=== PATIENT | male | born 1970 | race Caucasian/White ===

== ENCOUNTER → 2017-04-08 | Outpatient (CLI) | payer OTHER ==
[~2017-04-08] MED LIST: APRE30TA2 PO; FENT1PAT76 TD; LISI-170 PO; METO5VIA30 IVPush; MORP4VIA IVPush; OMNIPAQUE 350 MG/ML, 100ML BOTTLE ONE; ONDA4VIA4 IVPush; PANT40VI IVPush; PROM25AM6 IM; SULF1TAB24 PO; [UNRECOGNIZED DRUG - OTHER] JT
== END | disposition home or self-care (01) ==
LOC: CFH 14:40
PROVIDERS: ATTEND Internal Medicine Gastroenterology
DX: Z01.818 Encounter for other preprocedural examination (principal); K85.92 Acute pancreatitis with infected necrosis, unspecified; R16.1 Splenomegaly, not elsewhere classified
CPT/HCPCS: 74170; Q9967

== ENCOUNTER → 2017-04-14 | Day surgery (SDC) | payer OTHER ==
[~2017-04-14] VITALS: Ht 162.6 cm; Wt 64.5 kg
[~2017-04-14] MED LIST changes: +INSU100V5 SQ-INSULIN; +LACTATED RINGERS 1,000 ML IV SCH; +LIDOCAINE 1%, 2ML SQ PRN; +METF500T4 PO; -OMNIPAQUE 350 MG/ML, 100ML BOTTLE ONE
[2017-04-14 07:16] VITALS: BP 115/75
== END ==
LOC: OUT 06:48
PROVIDERS: ATTEND Internal Medicine Gastroenterology
DX: Z02.9 Encounter for administrative examinations, unspecified (principal)

== ENCOUNTER → 2017-06-27 | Outpatient (CLI) | payer OTHER ==
[~2017-06-27] MED LIST changes: -LACTATED RINGERS 1,000 ML IV SCH; -LIDOCAINE 1%, 2ML SQ PRN; +OMNIPAQUE 350 MG/ML, 100ML BOTTLE ONE
== END | disposition home or self-care (01) ==
LOC: CFH 07:22
PROVIDERS: ATTEND Internal Medicine Gastroenterology
DX: K86.3 Pseudocyst of pancreas (principal); R16.1 Splenomegaly, not elsewhere classified; K83.8 Other specified diseases of biliary tract; K82.4 Cholesterolosis of gallbladder; K85.90 Acute pancreatitis without necrosis or infection, unspecified
CPT/HCPCS: 74177; Q9967

== ENCOUNTER 2018-12-22 15:21 | Inpatient (IN) | payer OTHER ==
[~2018-12-22] VITALS: Ht 162.6 cm; Wt 66.1 kg
[~2018-12-22 15:21] MED LIST changes: +AMOX1TAB64 PO; +INSU100I32 SQ; +LIPA1CAP4 PO; +METF500T17 PO; -METF500T4 PO; +METR-90 PO; -OMNIPAQUE 350 MG/ML, 100ML BOTTLE ONE; -ONDA4VIA4 IVPush; +ONDA4VIA8 IVPush
[2018-12-22] MEDS ORDERED: LORazepam 2 MG/ML, 1ML ONE ×3 (15:31→18:04)
--- NOTE | 2018-12-22 15:40 | NUR ---
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 Pt was yelling from room at 3pm. Pt was found altered. FS 47. He was given 200 D10 IV. FS increased to 174. When in route pt had a tonic clonic seizure with assisted ventilations GCS 3. Then pt stopped seizing GCS 14. FS 170l. BP 140s/80, HR 130, 12 lead unremarkable. 97% RA. A&O x3. Pt is now alert, non verbal, follows some commands. Pt given 1mg Ativan IV per MD. Pt is connected to the monitor. Call light within reach. Family at bedside. Seizure pad on bed, side rails up.
--- NOTE | 2018-12-22 15:47 | NUR ---
x ray at bedside.
[2018-12-22] MEDS ORDERED: SODIUM CHLORIDE FLUSH 10ML SYR IVF ONE (16:00)
[2018-12-22] MEDS ORDERED: LORazepam 2 MG/ML, 1ML IVPush ONE ×3 (16:00→18:00)
[2018-12-22 16:02] LABS: ALANINE AMINOTRANSFERASE 442 U/L (12-78); ALBUMIN 3.6 g/dL (3.4-5.0); ANION GAP 19 mmol/L (5-15); CALCIUM 8.6 mg/dL (8.5-10.1); CHLORIDE 104 mmol/L (98-107); CREATININE 1.08 mg/dL (0.7-1.3)
--- NOTE | 2018-12-22 16:04 | NUR ---
PT TAKEN TO CT.
[2018-12-22 16:05] LABS: ALKALINE PHOSPHATASE 815 U/L (45-117); BILIRUBIN,TOTAL 2.4 mg/dL (0.2-1.0); MEAN CORPUSCULAR HEMOGLOBIN 28.3 pg (27.5-34.5); MEAN CORPUSCULAR HGB CONC 33.6 g/dL (33.2-36.2); MEAN CORPUSCULAR VOLUME 84.3 fL (81-97); PLATELET COUNT 93 x10^3/uL (130-400); RED BLOOD COUNT 4.94 x10^6/uL (4.38-5.82); RED CELL DISTRIBUTION WIDTH 17.6 % (9.4-14.8)
[2018-12-22 16:07] LABS: BASOPHILS # (AUTO) 0.03 x10^3/uL (0-0.1); BASOPHILS % (AUTO) 0 % (0-1); EOSINOPHILS # (AUTO) 0.07 x10^3/uL (0-0.4); EOSINOPHILS % (AUTO) 1 % (1-7); LYMPHOCYTES # (AUTO) 0.47 x10^3/uL (1-3.4); LYMPHOCYTES % (AUTO) 7 % (22-44); MD SCAN; MONOCYTES # (AUTO) 0.16 x10^3/uL (0.2-0.8); MONOCYTES % (AUTO) 3 % (2-9); NEUTROPHILS # (AUTO) 5.77 x10^3/uL (1.8-6.8); NEUTROPHILS % (AUTO) 89 % (42-75)
[2018-12-22 16:13] LABS: ACETAMINOPHEN < 2 mcg/mL (10-30); SALICYLATE LEVEL < 1.7 mg/dL (2.8-20.0)
--- NOTE | 2018-12-22 16:22 | NUR ---
Pt is back from CT. Pt is A&O X 4. Family at bedside. Pt is connected to the monitor. Call light within reach. Seizure pads in place, side rails up. Per MD give 2L NS IV. NS is running.
[2018-12-22] MEDS ORDERED: SODIUM CHLORIDE 0.9% 1,000ML IVBOLUS ONE (16:30)
--- NOTE | 2018-12-22 16:40 | NUR ---
lab at bedside.
--- NOTE | 2018-12-22 16:53 | NUR ---
Pt taken to CT for ABD and pelvis.
[2018-12-22] MEDS ORDERED: LACTULOSE 20 GM/30 ML UDC PO ONE ×2 (17:00→21:30)
[2018-12-22] MEDS ORDERED: LACTULOSE 3.3 GM/5 ML ORAL.SOL RC ONE ×2 (17:00→19:30)
--- NOTE | 2018-12-22 17:39 | NUR ---
FAMILY CALLED PT FOUND TO BE HAVING SEIZURE LIKE ACTIVITY. MD AND NURSE AT BEDSIDE. ASSISTED VENTILATIONS FOR PT. PT MOVED TO TRAUMA 4.
--- NOTE | 2018-12-22 17:42 | NUR ---
VERBAL ORDER BY : [id number] 1MG ATIVAN IV GIVEN BY NURSING DIETARY SUPERVISOR.
--- NOTE | 2018-12-22 17:49 | NUR ---
Pt moved to T4 for closer observation r/t continued seizure activity. Pt currently awake, no verbal response, withdraws from pain. POC discussed with pt's family members who are at bedside. Pt incontinent of urine, linens changed and pt cleaned up. Seizure precautions remain in place, all monitors in place, all safety measures observed.
--- NOTE | 2018-12-22 17:58 | NUR ---
Pt with seizure activity again. Episode lasting approx [address] Lr made aware. Orders received for 1mg Ativan IVP. Pt medicated per order, pt safety maintained. This RN noted pt to be wearing Invisalign dental trays on upper and lower teeth. Dental trays removed and given to pt's family member.
[2018-12-22] MEDS ORDERED: ACYCLOVIR 650 MG in SODIUM CHLORIDE 0.9% 100 ML IV ONE (18:00)
[2018-12-22] MEDS ORDERED: CEFTRIAXONE PMX 2GM/50ML 50 ML IV SCH (18:00)
[2018-12-22] MEDS ORDERED: LEVETIRACETAM 2,000 MG in SODIUM CHLORIDE 0.9% 100 ML IV ONE (18:00)
[2018-12-22] MEDS ORDERED: CEFTRIAXONE PMX 2GM/50ML 50 ML ONE (18:04)
--- NOTE | 2018-12-22 18:33 | NUR ---
LP performed by Dr. Lr and MD resident. Pt tolerated well, safety maintained. Pt lying flat in bed, awake, withdraws from pain. All safety measures observed.
[2018-12-22 18:56] LABS: GLUCOSE, CSF 85 mg/dL (40-80); TOTAL PROTEIN,CSF 39 mg/dL (15-45)
--- NOTE | 2018-12-22 18:56 | NUR ---
Pt straight cathed per order. 650mL clear, dark yellow urine obtained. Pt tolerated well. No change in neuro condition.
--- NOTE | 2018-12-22 19:07 | NUR ---
Pt awake, looks at this RN when his name is called. Pt shakes his head no when asked if he has pain. Pt unable to respond to any other A&O questions.
[2018-12-22 19:16] LABS: MICROSCOPIC NOT IND
[2018-12-22 19:22] LABS: CULTURE INDICATED? NO
[2018-12-22] MEDS ORDERED: [UNRECOGNIZED DRUG - OTHER] PO (19:23)
[2018-12-22 19:29] LABS: AMPHETAMINE SCREEN, URINE Negative (Negative); BARBITURATE SCREEN, URINE Negative (Negative); BENZODIAZEPINE SCREEN, URINE Negative (Negative); CANNABINOID SCREEN, URINE Negative (Negative); COCAINE SCREEN, URINE Negative (Negative); METHADONE SCREEN, URINE Negative (Negative); OPIATE SCREEN, URINE Negative (Negative)
--- NOTE | 2018-12-22 19:53 | NUR ---
Pt responsive to RN, states he is not in pain and knows he is in the hospital. Pt extremely lethargic, drowsy, family at bedside, denies needs at this time.
--- NOTE | 2018-12-22 20:03 | NUR ---
Hospital bed ordered for pt
--- NOTE | 2018-12-22 20:27 | NUR ---
Rectal tube placed for lactulose administration. Hopsitalsist at bedside, verbally changed lactulose order from rectal to NG. ok to use dobbhoff NG tube for pt comfort for lactulose admnistration
--- NOTE | 2018-12-22 20:28 | NUR ---
Dobhoff NG tube ordered, [facility] called states they will send it up.
[2018-12-22] MEDS ORDERED: POTASSIUM CHLORIDE 20 MEQ in SODIUM CHLORIDE 0.9% 250 ML IV ONE (20:30)
[2018-12-22] MEDS ORDERED: CEFTRIAXONE PMX 2GM/50ML 50 ML IV ONE (20:30)
--- NOTE | 2018-12-22 20:36 | NUR ---
Lactulose ordere from pharmacy, pharmacy called to advise yellow slip was en route
--- NOTE | 2018-12-22 20:58 | NUR ---
Admitting MDs at bedside, will insert NG tube after eval and family update
--- NOTE | 2018-12-22 21:24 | NUR ---
NG tube placed, rpt x ray completed, placement confirmed at bedside with MD nassar.
[2018-12-22] MEDS ORDERED: DEXTROSE 50%, 50ML SYRINGE IVPush PRN (21:30)
[2018-12-22] MEDS ORDERED: DEXTROSE 4 GM TAB.CHEW PO PRN (21:30)
[2018-12-22] MEDS ORDERED: ONDANSETRON 2MG/ML, 2ML IVPush PRN (21:30)
[2018-12-22] MEDS ORDERED: GLUCAGON 1 MG IM PRN (21:30)
[2018-12-22] MEDS ORDERED: ONDANSETRON ODT 4 MG PO PRN (21:30)
[2018-12-22] MEDS ORDERED: LABETALOL 5MG/ML, 20ML IVPush PRN (21:30)
[2018-12-22] MEDS ORDERED: hydrALAzine 20 MG/ML, 1ML IVPush PRN (21:30)
--- NOTE | 2018-12-22 21:40 | NUR ---
Report to Rudy MCGILL
[2018-12-22 21:46] LABS: INTERNATIONAL NORMALIZED RATIO 1.09 (0.93-1.1); PROTHROMBIN TIME 11.4 Seconds (9.6-11.5)
[2018-12-22 21:53] LABS: TROPONIN I < 0.015 ng/mL (0.000-0.045)
--- NOTE | 2018-12-22 22:12 | NUR ---
SPOKE TO UN[facility] DR RAM ABOUT MED TELE ORDER. SHE STATES SHE HAS SPOKEN WITH DR OCONNOR WELL HER ATTENDING PHYSICIAN AND PT IS CURRENTLY MED TELE APPROPRIATE. THIS RN ALSO QUESTIONED HOW FREQUENTLY SHE WOULD LIKE FSBS AND SHE STATES Q6 HRS AND PRN FOR SUSPECTED HYPOGLYCEMIA. THIS RN ALSO REQUESTED PRN MEDS FOR SEIZURES. SHE STATES SHE WILL ADD THESE ORDERS. POC DISCUSSED WITH FAMILY. ALL QUESTIONS ANSWERED.
[2018-12-22 23:11] VITALS: BP 124/81
[2018-12-22] MEDS: LEVETIRACETAM 1,000 MG in SODIUM CHLORIDE 0.9% 100 ML IV SCH (23:35)
[2018-12-22] MEDS: NS + 20MEQ KCL 1,000 ML IV SCH (23:45)
[2018-12-23 01:10] VITALS: BP 112/73
[2018-12-23] MEDS: LACTULOSE 20 GM/30 ML UDC PO SCH ×5 (03:46→21:00)
[2018-12-23] MEDS: ACYCLOVIR 650 MG in SODIUM CHLORIDE 0.9% 100 ML IV SCH ×3 (05:13→20:21)
[2018-12-23 05:40] LABS: CALCIUM 8.3 mg/dL (8.5-10.1); CHLORIDE 115 mmol/L (98-107)
[2018-12-23 05:46] LABS: ALANINE AMINOTRANSFERASE 324 U/L (12-78); ALKALINE PHOSPHATASE 648 U/L (45-117); ANION GAP 6 mmol/L (5-15); BILIRUBIN,TOTAL 1.8 mg/dL (0.2-1.0); CREATININE 0.86 mg/dL (0.7-1.3); TOTAL PROTEIN 6.8 g/dL (6.4-8.2)
[2018-12-23 05:59] LABS: MEAN CORPUSCULAR HEMOGLOBIN 28.8 pg (27.5-34.5); MEAN CORPUSCULAR HGB CONC 34.6 g/dL (33.2-36.2); MEAN CORPUSCULAR VOLUME 83.1 fL (81-97); RED CELL DISTRIBUTION WIDTH 17.2 % (9.4-14.8)
[2018-12-23 06:19] LABS: PLATELET COUNT 79 x10^3/uL (130-400)
[2018-12-23 06:20] LABS: MEAN PLATELET VOLUME 9.9 fL (7.4-10.4)
[2018-12-23 06:22] LABS: MD SCAN
[2018-12-23 06:26] LABS: BASOPHILS # (AUTO) 0.01 x10^3/uL (0-0.1); BASOPHILS % (AUTO) 0 % (0-1); EOSINOPHILS # (AUTO) 0.13 x10^3/uL (0-0.4); EOSINOPHILS % (AUTO) 3 % (1-7); LYMPHOCYTES # (AUTO) 0.53 x10^3/uL (1-3.4); LYMPHOCYTES % (AUTO) 12 % (22-44); MONOCYTES # (AUTO) 0.36 x10^3/uL (0.2-0.8); MONOCYTES % (AUTO) 8 % (2-9); NEUTROPHILS # (AUTO) 3.37 x10^3/uL (1.8-6.8); NEUTROPHILS % (AUTO) 77 % (42-75)
[2018-12-23] MEDS ORDERED: INSULIN LISPRO 100 UNITS/ML, PEN SQ-INSULIN SCH (07:00)
[2018-12-23] MEDS: INSULIN LISPRO 100 UNITS/ML, PEN SQ-INSULIN SCH ×4 (07:13→21:00)
[2018-12-23] MEDS: NS + 20MEQ KCL 1,000 ML IV SCH ×2 (07:30→20:21)
[2018-12-23 07:49] VITALS: BP 116/76
[2018-12-23] MEDS: LEVETIRACETAM 1,000 MG in SODIUM CHLORIDE 0.9% 100 ML IV SCH ×2 (08:34→21:44)
[2018-12-23] MEDS ORDERED: FILTER 0.22 MICRON FOR PHENYTOIN IV PRN (09:30)
[2018-12-23] MEDS ORDERED: PHENYTOIN SODIUM IV ONE (09:30)
[2018-12-23] MEDS ORDERED: SODIUM CHLORIDE 0.9% IV ONE (09:30)
[2018-12-23] MEDS: LORazepam 2 MG/ML, 1ML IVPush PRN (09:47)
[2018-12-23] MEDS ORDERED: GADOBUTROL 7.5 MMOL/7.5 ML PFS ONE (10:49)
[2018-12-23] MEDS ORDERED: PHENYTOIN SODIUM 50 MG/ML, 2ML IVPush SCH (16:00)
[2018-12-23] MEDS: CEFTRIAXONE PMX 1GM/50ML 50 ML IV SCH (17:25)
[2018-12-23] MEDS: INSULIN GLARGINE 100 UNITS/ML, PEN SQ-INSULIN SCH (21:00)
[2018-12-23] MEDS: PHENYTOIN 125 MG/5 ML ORAL SUSP PO/NG SCH (22:46)
[2018-12-24] MEDS: LACTULOSE 20 GM/30 ML UDC PO SCH ×4 (03:00→21:00)
[2018-12-24 04:00] VITALS: BP 115/69
[2018-12-24] MEDS: NS + 20MEQ KCL 1,000 ML IV SCH ×2 (04:31→12:57)
[2018-12-24] MEDS: ACYCLOVIR 650 MG in SODIUM CHLORIDE 0.9% 100 ML IV SCH ×3 (04:32→20:21)
[2018-12-24] MEDS: LORazepam 2 MG/ML, 1ML IVPush PRN ×2 (08:46→10:34)
[2018-12-24] MEDS: INSULIN LISPRO 100 UNITS/ML, PEN SQ-INSULIN SCH ×4 (09:08→21:00)
[2018-12-24] MEDS: LEVETIRACETAM 1,000 MG in SODIUM CHLORIDE 0.9% 100 ML IV SCH ×2 (09:28→22:55)
[2018-12-24] MEDS: PHENYTOIN 125 MG/5 ML ORAL SUSP PO/NG SCH ×3 (09:28→21:37)
[2018-12-24] MEDS: VALPROATE SODIUM 500 MG in DEXTROSE 5% 100 ML IV SCH ×2 (10:38→22:56)
[2018-12-24 10:53] LABS: MEAN CORPUSCULAR HEMOGLOBIN 28.8 pg (27.5-34.5); MEAN CORPUSCULAR HGB CONC 34.3 g/dL (33.2-36.2); MEAN CORPUSCULAR VOLUME 83.9 fL (81-97); RED BLOOD COUNT 4.14 x10^6/uL (4.38-5.82); RED CELL DISTRIBUTION WIDTH 17.2 % (9.4-14.8)
[2018-12-24 10:55] LABS: ALANINE AMINOTRANSFERASE 230 U/L (12-78); ALBUMIN 2.8 g/dL (3.4-5.0); ANION GAP 4 mmol/L (5-15); CALCIUM 8.3 mg/dL (8.5-10.1); CHLORIDE 113 mmol/L (98-107)
[2018-12-24 10:57] LABS: ALKALINE PHOSPHATASE 588 U/L (45-117); BILIRUBIN,TOTAL 1.2 mg/dL (0.2-1.0); CREATINE KINASE, TOTAL 46 U/L (39-308); TOTAL PROTEIN 6.7 g/dL (6.4-8.2)
[2018-12-24 11:00] LABS: MEAN PLATELET VOLUME 9.4 fL (7.4-10.4); PLATELET COUNT 66 x10^3/uL (130-400)
[2018-12-24 11:03] LABS: BASOPHILS # (AUTO) 0.02 x10^3/uL (0-0.1); BASOPHILS % (AUTO) 1 % (0-1); EOSINOPHILS # (AUTO) 0.08 x10^3/uL (0-0.4); EOSINOPHILS % (AUTO) 3 % (1-7); LYMPHOCYTES # (AUTO) 0.65 x10^3/uL (1-3.4); LYMPHOCYTES % (AUTO) 22 % (22-44); MD SCAN; MONOCYTES # (AUTO) 0.22 x10^3/uL (0.2-0.8); MONOCYTES % (AUTO) 8 % (2-9); NEUTROPHILS # (AUTO) 2.01 x10^3/uL (1.8-6.8); NEUTROPHILS % (AUTO) 68 % (42-75)
[2018-12-24] MEDS: CEFTRIAXONE PMX 1GM/50ML 50 ML IV SCH (15:38)
[2018-12-24] MEDS ORDERED: LORazepam 2 MG/ML, 1ML IVPush PRN ×2 (18:00→19:00)
[2018-12-24] MEDS: D5%-0.45NACL+KCL 20MEQ 1,000 ML IV SCH (18:02)
[2018-12-24] MEDS: INSULIN GLARGINE 100 UNITS/ML, PEN SQ-INSULIN SCH (21:00)
[2018-12-24] MEDS ORDERED: VALPROATE SODIUM 1,000 MG in SODIUM CHLORIDE 0.9% 100 ML IV ONE (23:00)
[2018-12-25] MEDS: LACTULOSE 20 GM/30 ML UDC PO SCH ×4 (03:00→21:49)
[2018-12-25 04:00] VITALS: BP 114/73
[2018-12-25] MEDS: ACYCLOVIR 650 MG in SODIUM CHLORIDE 0.9% 100 ML IV SCH ×2 (04:04→12:11)
[2018-12-25 05:30] LABS: MEAN CORPUSCULAR HEMOGLOBIN 28.6 pg (27.5-34.5); MEAN CORPUSCULAR HGB CONC 34.1 g/dL (33.2-36.2); MEAN CORPUSCULAR VOLUME 83.9 fL (81-97); MEAN PLATELET VOLUME 8.9 fL (7.4-10.4); PLATELET COUNT 68 x10^3/uL (130-400); RED BLOOD COUNT 4.47 x10^6/uL (4.38-5.82); RED CELL DISTRIBUTION WIDTH 17.2 % (9.4-14.8)
[2018-12-25 05:42] LABS: CHLORIDE 109 mmol/L (98-107)
[2018-12-25 05:53] LABS: BASOPHILS # (AUTO) 0.02 x10^3/uL (0-0.1); BASOPHILS % (AUTO) 1 % (0-1); EOSINOPHILS # (AUTO) 0.11 x10^3/uL (0-0.4); EOSINOPHILS % (AUTO) 5 % (1-7); LYMPHOCYTES # (AUTO) 0.53 x10^3/uL (1-3.4); LYMPHOCYTES % (AUTO) 23 % (22-44); MD SCAN; MONOCYTES # (AUTO) 0.18 x10^3/uL (0.2-0.8); MONOCYTES % (AUTO) 8 % (2-9); NEUTROPHILS # (AUTO) 1.49 x10^3/uL (1.8-6.8); NEUTROPHILS % (AUTO) 64 % (42-75)
[2018-12-25 05:59] LABS: ALANINE AMINOTRANSFERASE 211 U/L (12-78); ALBUMIN 2.9 g/dL (3.4-5.0); ALKALINE PHOSPHATASE 618 U/L (45-117); ANION GAP 5 mmol/L (5-15); BILIRUBIN,TOTAL 1.1 mg/dL (0.2-1.0); CALCIUM 8.6 mg/dL (8.5-10.1); CREATININE 0.85 mg/dL (0.7-1.3); TOTAL PROTEIN 6.9 g/dL (6.4-8.2)
[2018-12-25] MEDS: INSULIN LISPRO 100 UNITS/ML, PEN SQ-INSULIN SCH ×4 (07:00→21:45)
[2018-12-25] MEDS: D5%-0.45NACL+KCL 20MEQ 1,000 ML IV SCH ×2 (07:53→15:37)
[2018-12-25] MEDS: VALPROATE SODIUM 500 MG in DEXTROSE 5% 100 ML IV SCH ×2 (08:56→21:48)
[2018-12-25] MEDS: PHENYTOIN 125 MG/5 ML ORAL SUSP PO/NG SCH ×3 (09:17→21:48)
[2018-12-25 09:21] LABS: ALBUMIN 2.8 g/dL (3.4-5.0); ANION GAP 5 mmol/L (5-15); CALCIUM 8.2 mg/dL (8.5-10.1); CHLORIDE 110 mmol/L (98-107)
[2018-12-25 09:24] LABS: ALANINE AMINOTRANSFERASE 196 U/L (12-78); ALKALINE PHOSPHATASE 592 U/L (45-117); BILIRUBIN,TOTAL 1.1 mg/dL (0.2-1.0); CREATINE KINASE, TOTAL 23 U/L (39-308); CREATININE 0.84 mg/dL (0.7-1.3); TOTAL PROTEIN 6.8 g/dL (6.4-8.2)
[2018-12-25] MEDS: LEVETIRACETAM 1,000 MG in SODIUM CHLORIDE 0.9% 100 ML IV SCH ×2 (12:02→21:18)
[2018-12-25] MEDS: LACOSAMIDE 50 MG in SODIUM CHLORIDE 0.9% 100 ML IV SCH (14:31)
--- NOTE | 2018-12-25 16:03 | NUR ---
TF GOAL: VITAL AF 1.2 @ 85ML/HR X 18HRS PER DAY HOLD TF 1 hour before and after ng dilantin dose-currently getting dilantin tid
[2018-12-25] MEDS: CEFTRIAXONE PMX 1GM/50ML 50 ML IV SCH (17:09)
[2018-12-25] MEDS: INSULIN GLARGINE 100 UNITS/ML, PEN SQ-INSULIN SCH (21:47)
[2018-12-26] MEDS: D5%-0.45NACL+KCL 20MEQ 1,000 ML IV SCH ×3 (00:33→21:41)
[2018-12-26] MEDS: LACOSAMIDE 50 MG in SODIUM CHLORIDE 0.9% 100 ML IV SCH (00:33)
[2018-12-26] MEDS: LACTULOSE 20 GM/30 ML UDC PO SCH ×3 (03:02→20:58)
[2018-12-26 03:30] LABS: MEAN CORPUSCULAR HEMOGLOBIN 28.6 pg (27.5-34.5); MEAN CORPUSCULAR HGB CONC 33.8 g/dL (33.2-36.2); MEAN CORPUSCULAR VOLUME 84.4 fL (81-97); MEAN PLATELET VOLUME 8.5 fL (7.4-10.4); PLATELET COUNT 62 x10^3/uL (130-400)
[2018-12-26 03:38] LABS: ALANINE AMINOTRANSFERASE 152 U/L (12-78); ALBUMIN 2.9 g/dL (3.4-5.0); ANION GAP 5 mmol/L (5-15); CALCIUM 8.1 mg/dL (8.5-10.1); CHLORIDE 109 mmol/L (98-107); CREATININE 0.82 mg/dL (0.7-1.3)
[2018-12-26 03:40] LABS: ALKALINE PHOSPHATASE 553 U/L (45-117); BILIRUBIN,TOTAL 1.2 mg/dL (0.2-1.0); TOTAL PROTEIN 6.9 g/dL (6.4-8.2)
[2018-12-26 03:54] LABS: BASOPHILS # (AUTO) 0.01 x10^3/uL (0-0.1); BASOPHILS % (AUTO) 0 % (0-1); EOSINOPHILS % (AUTO) 4 % (1-7); LYMPHOCYTES # (AUTO) 0.45 x10^3/uL (1-3.4); LYMPHOCYTES % (AUTO) 16 % (22-44); MD SCAN; MONOCYTES # (AUTO) 0.36 x10^3/uL (0.2-0.8); MONOCYTES % (AUTO) 13 % (2-9); NEUTROPHILS % (AUTO) 67 % (42-75)
[2018-12-26 04:00] VITALS: BP 117/71
[2018-12-26] MEDS: INSULIN LISPRO 100 UNITS/ML, PEN SQ-INSULIN SCH ×4 (07:00→23:17)
[2018-12-26] MEDS: PHENYTOIN 125 MG/5 ML ORAL SUSP PO/NG SCH ×3 (08:51→20:58)
[2018-12-26] MEDS: LEVETIRACETAM 1,000 MG in SODIUM CHLORIDE 0.9% 100 ML IV SCH ×2 (09:14→21:38)
[2018-12-26] MEDS: VALPROATE SODIUM 500 MG in DEXTROSE 5% 100 ML IV SCH ×2 (09:38→22:01)
[2018-12-26] MEDS: LACOSAMIDE 100 MG in SODIUM CHLORIDE 0.9% 100 ML IV SCH ×2 (10:13→20:52)
[2018-12-26 15:21] LABS: ANA SCREEN NEGATIVE (Negative)
[2018-12-26] MEDS: CEFTRIAXONE PMX 1GM/50ML 50 ML IV SCH (16:29)
[2018-12-26] MEDS: INSULIN GLARGINE 100 UNITS/ML, PEN SQ-INSULIN SCH (21:04)
[2018-12-27 04:00] VITALS: BP 112/72
[2018-12-27 04:33] LABS: MEAN CORPUSCULAR HEMOGLOBIN 28.1 pg (27.5-34.5); MEAN CORPUSCULAR HGB CONC 33.2 g/dL (33.2-36.2); MEAN CORPUSCULAR VOLUME 84.5 fL (81-97); MEAN PLATELET VOLUME 9.4 fL (7.4-10.4); PLATELET COUNT 70 x10^3/uL (130-400); RED BLOOD COUNT 4.18 x10^6/uL (4.38-5.82); RED CELL DISTRIBUTION WIDTH 16.6 % (9.4-14.8)
[2018-12-27 04:41] LABS: ALBUMIN 2.6 g/dL (3.4-5.0); ANION GAP 3 mmol/L (5-15); CHLORIDE 109 mmol/L (98-107)
[2018-12-27 04:46] LABS: ALANINE AMINOTRANSFERASE 110 U/L (12-78); ALKALINE PHOSPHATASE 482 U/L (45-117); BILIRUBIN,TOTAL 0.8 mg/dL (0.2-1.0); CREATININE 0.79 mg/dL (0.7-1.3)
[2018-12-27 04:47] LABS: CREATINE KINASE, TOTAL 20 U/L (39-308); TOTAL PROTEIN 6.2 g/dL (6.4-8.2)
[2018-12-27 04:52] LABS: BASOPHILS # (AUTO) 0.01 x10^3/uL (0-0.1); BASOPHILS % (AUTO) 0 % (0-1); EOSINOPHILS # (AUTO) 0.12 x10^3/uL (0-0.4); EOSINOPHILS % (AUTO) 5 % (1-7); LYMPHOCYTES # (AUTO) 0.64 x10^3/uL (1-3.4); LYMPHOCYTES % (AUTO) 28 % (22-44); MD SCAN; MONOCYTES # (AUTO) 0.32 x10^3/uL (0.2-0.8); MONOCYTES % (AUTO) 14 % (2-9); NEUTROPHILS # (AUTO) 1.21 x10^3/uL (1.8-6.8); NEUTROPHILS % (AUTO) 53 % (42-75)
[2018-12-27] MEDS: INSULIN LISPRO 100 UNITS/ML, PEN SQ-INSULIN SCH ×4 (05:01→23:04)
[2018-12-27] MEDS: D5%-0.45NACL+KCL 20MEQ 1,000 ML IV SCH ×2 (08:13→19:23)
[2018-12-27] MEDS: LACTULOSE 20 GM/30 ML UDC PO SCH ×3 (09:00→20:46)
[2018-12-27] MEDS: LACOSAMIDE 100 MG in SODIUM CHLORIDE 0.9% 100 ML IV SCH ×2 (09:06→22:15)
[2018-12-27] MEDS: LEVETIRACETAM 1,000 MG in SODIUM CHLORIDE 0.9% 100 ML IV SCH ×2 (09:52→21:46)
[2018-12-27] MEDS: PHENYTOIN 125 MG/5 ML ORAL SUSP PO/NG SCH ×3 (10:20→20:47)
[2018-12-27] MEDS: VALPROATE SODIUM 500 MG in DEXTROSE 5% 100 ML IV SCH ×2 (10:28→20:44)
[2018-12-27] MEDS: PANTOPRAZOLE 40 MG IV IVPush SCH (12:02)
[2018-12-27] MEDS: CEFTRIAXONE PMX 1GM/50ML 50 ML IV SCH (16:36)
[2018-12-27] MEDS: INSULIN GLARGINE 100 UNITS/ML, PEN SQ-INSULIN SCH (20:51)
[2018-12-28 04:00] VITALS: BP 102/49
[2018-12-28 04:30] LABS: MEAN CORPUSCULAR HGB CONC 34.3 g/dL (33.2-36.2); MEAN CORPUSCULAR VOLUME 84.6 fL (81-97); RED BLOOD COUNT 3.89 x10^6/uL (4.38-5.82); RED CELL DISTRIBUTION WIDTH 17.1 % (9.4-14.8)
[2018-12-28 04:36] LABS: ALANINE AMINOTRANSFERASE 83 U/L (12-78); ALBUMIN 2.6 g/dL (3.4-5.0); ANION GAP 4 mmol/L (5-15); CALCIUM 7.9 mg/dL (8.5-10.1); CHLORIDE 109 mmol/L (98-107)
[2018-12-28 04:38] LABS: ALKALINE PHOSPHATASE 410 U/L (45-117); BILIRUBIN,TOTAL 0.6 mg/dL (0.2-1.0); CREATINE KINASE, TOTAL 14 U/L (39-308)
[2018-12-28] MEDS: D5%-0.45NACL+KCL 20MEQ 1,000 ML IV SCH (04:52)
[2018-12-28] MEDS: INSULIN LISPRO 100 UNITS/ML, PEN SQ-INSULIN SCH ×2 (04:57→11:43)
[2018-12-28 05:30] LABS: BASOPHILS # (AUTO) 0.01 x10^3/uL (0-0.1); BASOPHILS % (AUTO) 1 % (0-1); EOSINOPHILS # (AUTO) 0.12 x10^3/uL (0-0.4); EOSINOPHILS % (AUTO) 5 % (1-7); LYMPHOCYTES # (AUTO) 0.75 x10^3/uL (1-3.4); LYMPHOCYTES % (AUTO) 33 % (22-44); MD SCAN; MEAN PLATELET VOLUME 9.1 fL (7.4-10.4); MONOCYTES # (AUTO) 0.26 x10^3/uL (0.2-0.8); MONOCYTES % (AUTO) 11 % (2-9); NEUTROPHILS # (AUTO) 1.12 x10^3/uL (1.8-6.8); NEUTROPHILS % (AUTO) 50 % (42-75); PLATELET COUNT 68 x10^3/uL (130-400)
[2018-12-28] MEDS: VALPROATE SODIUM 500 MG in DEXTROSE 5% 100 ML IV SCH (09:03)
[2018-12-28] MEDS: PANTOPRAZOLE 40 MG IV IVPush SCH (09:07)
[2018-12-28] MEDS: LACTULOSE 20 GM/30 ML UDC PO SCH (09:07)
[2018-12-28] MEDS: LEVETIRACETAM 1,000 MG in SODIUM CHLORIDE 0.9% 100 ML IV SCH (10:07)
[2018-12-28] MEDS: PHENYTOIN 125 MG/5 ML ORAL SUSP PO/NG SCH (10:10)
[2018-12-28] MEDS: LACOSAMIDE 100 MG in SODIUM CHLORIDE 0.9% 100 ML IV SCH (10:26)
[2018-12-28] MEDS ORDERED: ASPIRIN 81 MG TABLET EC PO SCH (12:30)
[2018-12-28] MEDS ORDERED: ATOR20TA37 PO (14:53)
[2018-12-28] MEDS ORDERED: INSU100I13 SQ-INSULIN (14:53)
[2018-12-28] MEDS ORDERED: PANT40VI IVPush (14:53)
[2018-12-28] MEDS ORDERED: VALP500V5 IV (14:53)
[2018-12-28] MEDS ORDERED: PHEN125O4 PO/NG (14:53)
[2018-12-28] MEDS ORDERED: LACO10SO IV (14:53)
[2018-12-28] MEDS ORDERED: ASPI81TA45 PO (14:53)
[2018-12-28] MEDS ORDERED: LORA2VIA6 IVPush (14:53)
[2018-12-28] MEDS ORDERED: LEVE100020 PO (14:53)
[2018-12-28] MEDS ORDERED: LACT20SO13 PO (14:53)
[2018-12-28] MEDS ORDERED: INSU100I11 SQ-INSULIN (14:53)
[2018-12-28] MEDS ORDERED: ATORVASTATIN 20 MG TABLET PO SCH (21:00)
== END 2018-12-28 15:43 | disposition short-term general hospital (02) | DRG 433 ==
LOC: ED 15:54 → EDIP 17:06 → 4EST 23:08 → CCU 12-23 13:59
PROVIDERS: ADMIT Family Medicine; ATTEND Family Medicine
PROC: 009U3ZX Drainage of Spinal Canal, Percutaneous Approach, Diagnostic (ICD-10-PCS; principal; 2018-12-22)
PROC: 0T9B70Z Drainage of Bladder with Drainage Device, Via Natural or Artificial Opening (ICD-10-PCS; 2018-12-22)
DX: K70.40 Alcoholic hepatic failure without coma (principal); D61.818 Other pancytopenia; E87.2 Acidosis; I50.30 Unspecified diastolic (congestive) heart failure; J98.11 Atelectasis; K76.6 Portal hypertension; K80.21 Calculus of gallbladder without cholecystitis with obstruction; G40.901 Epilepsy, unspecified, not intractable, with status epilepticus; E11.649 Type 2 diabetes mellitus with hypoglycemia without coma; E78.5 Hyperlipidemia, unspecified; E86.0 Dehydration; E87.6 Hypokalemia; I11.0 Hypertensive heart disease with heart failure; Z79.4 Long term (current) use of insulin; Z82.49 Family history of ischemic heart disease and other diseases of the circulatory system; Z83.3 Family history of diabetes mellitus; Z90.410 Acquired total absence of pancreas; Z79.82 Long term (current) use of aspirin; Z79.899 Other long term (current) drug therapy; K70.30 Alcoholic cirrhosis of liver without ascites; K86.89 Other specified diseases of pancreas; R09.02 Hypoxemia
CPT/HCPCS: 36415; 36600; 70450; 70553; 71045; 74018; 74177; 76390; 80053; 80164; 80177; 80185; 80307; 80329; 81003; 82140; 82550; 82803; 82945; 82962; 83605; 83690; 83735; 84145; 84157; 84484; 85025; 85610; 85730; 86038; 86316; 86592; 87040; 87070; 87081; 87205; 87252; 87529; 87806; 89051; 93005; 93306; 95951; 96361; 96365; 96367; 96368; 96375; 99292; A9585; C9254; G0378; J0133; J0696; J1165; J1953; J3480; C9113; G0475; G0480; J1815; J2060; J7030; J7050

== ENCOUNTER 2019-01-23 08:36 | Inpatient (IN) | payer OTHER ==
[~2019-01-23] VITALS: Ht 162.6 cm; Wt 77.9 kg
[~2019-01-23 08:36] MED LIST changes: +ASPI81TA45 PO; +ATOR20TA37 PO; +INSU100I11 SQ-INSULIN; +INSU100I13 SQ-INSULIN; +LACO10SO IV; +LACT20SO13 PO; +LEVE100020 PO; +LORA2VIA6 IVPush; +ONDA4VIA60 IVPush; -ONDA4VIA8 IVPush; +PHEN125O4 PO/NG; +VALP500V5 IV; +[UNRECOGNIZED DRUG - OTHER] PO
[2019-01-23] MEDS ORDERED: ACETAMINOPHEN 500 MG TABLET ONE (08:57)
[2019-01-23] MEDS ORDERED: SODIUM CHLORIDE FLUSH 10ML SYR IVF ONE (09:00)
[2019-01-23] MEDS ORDERED: SODIUM CHLORIDE 0.9% 1,000ML IVBOLUS ONE ×2 (09:00→10:30)
[2019-01-23] MEDS ORDERED: ACETAMINOPHEN 500 MG TABLET PO ONE ×2 (09:00→23:30)
[2019-01-23] MEDS ORDERED: PIPERACILLIN/TAZO/PMX 3.375GM 50 ML IV ONE (09:30)
[2019-01-23 09:42] LABS: INTERNATIONAL NORMALIZED RATIO 1.26 (0.93-1.1); PROTHROMBIN TIME 13.1 Seconds (9.6-11.5)
[2019-01-23 09:45] LABS: MEAN CORPUSCULAR HEMOGLOBIN 27.3 pg (27.5-34.5); MEAN CORPUSCULAR VOLUME 82.8 fL (81-97); MEAN PLATELET VOLUME 9.6 fL (7.4-10.4); PLATELET COUNT 95 x10^3/uL (130-400); RED BLOOD COUNT 3.99 x10^6/uL (4.38-5.82); RED CELL DISTRIBUTION WIDTH 14.9 % (9.4-14.8)
[2019-01-23 09:49] LABS: ALANINE AMINOTRANSFERASE 79 U/L (12-78); ALBUMIN 2.5 g/dL (3.4-5.0); ANION GAP 10 mmol/L (5-15); CALCIUM 7.9 mg/dL (8.5-10.1); CHLORIDE 108 mmol/L (98-107); CREATININE 0.99 mg/dL (0.7-1.3)
[2019-01-23 09:51] LABS: ALKALINE PHOSPHATASE 547 U/L (45-117); BILIRUBIN,TOTAL 1.2 mg/dL (0.2-1.0); TOTAL PROTEIN 6.6 g/dL (6.4-8.2)
[2019-01-23 09:54] LABS: MD YES
[2019-01-23 10:03] LABS: BAND#(MANUAL) 2.28 x10^3/uL; BANDS%(MANUAL) 30 % (0-7); LYMPH#(MANUAL) 0.08 x10^3/uL (1-3.4); LYMPHS% (MANUAL) 1 % (22-44); MONOS#(MANUAL) 0.46 x10^3/uL (0.3-2.7); MONOS% (MANUAL) 6 % (2-9); SEG#(MANUAL) 4.79 x10^3/uL (1.8-6.8); SEGS% (MANUAL) 63 % (42-75)
[2019-01-23 10:06] LABS: ANISOCYTOSIS 1+; POLYCHROMASIA 1+
[2019-01-23 10:07] LABS: <PLATELET ESTIMATE> DECREASED; <PLT MORPHOLOGY> NORMAL PLT MORPH
--- NOTE | 2019-01-23 10:10 | NUR ---
PT REMAINS HYPOTENSIVE AFTER 1 LITER BOLUS NS. AWARE. ORDER FOR 2ND LITER RECIEVED AND STARTED NOW.
[2019-01-23] MEDS ORDERED: PHEN50TA4 PO (10:18)
[2019-01-23] MEDS ORDERED: VANCOMYCIN PER PHARMACY MC ONE (10:30)
[2019-01-23] MEDS ORDERED: VANCOMYCIN 1,200 MG in SODIUM CHLORIDE 0.9% 250 ML IV ONE (10:30)
[2019-01-23 10:40] LABS: ACETONE, SERUM Negative (Negative)
--- NOTE | 2019-01-23 10:45 | NUR ---
2ND LITER DONE. PT REMAINS HYPOSTENSIVE. MD AWARE. PT PROVIDED WITH MEAL TRAY PER ORDER.
[2019-01-23] MEDS ORDERED: NOREPINEPHRINE 4 MG in SODIUM CHLORIDE 0.9% 246 ML IV PRN (11:00)
--- NOTE | 2019-01-23 11:03 | NUR ---
PT MOVED TO TRAUMA 03, SBAR REPORT TO PEREZ MCGILL.
--- NOTE | 2019-01-23 11:14 | NUR ---
ASSUME CARE OF PT SEPSIS BOLUS COMPLETE. PT STILL HYPOTENSIVE, MOVE TO T3, CONSENT SIGNED FOR CENTRAL LINE, LEVOPHED ORDERED FROM PHARM, WILL START MAG, LEVOPHED AND VANCO WHEN LINED PLACED AND POSITION CONFIRMED. PT WILL BE CCU ADMIT, FAMILY UPDATED ON POC.
[2019-01-23 11:21] LABS: RAPID INFLUENZA A Negative (Negative); RAPID INFLUENZA B Negative (Negative)
[2019-01-23] MEDS ORDERED: MAGNESIUM SULFATE PMX 2GM/50ML 50 ML ONE (11:49)
[2019-01-23] MEDS ORDERED: MAGNESIUM SULFATE PMX 2GM/50ML 50 ML IV ONE (12:00)
[2019-01-23] MEDS ORDERED: LACO100T PO (12:12)
[2019-01-23] MEDS ORDERED: LEVE750T37 PO (12:12)
[2019-01-23] MEDS ORDERED: OXCA300T19 PO (12:15)
[2019-01-23] MEDS ORDERED: LACT10SO28 PO (12:16)
[2019-01-23] MEDS ORDERED: SODIUM CHLORIDE 0.9% 1,000 ML IV SCH (12:45)
--- NOTE | 2019-01-23 12:45 | NUR ---
REPORT GIVEN TO NANO JENSEN, PT TO CT THEN WILL TAKE UP, FAMILY AWARE WILL TRANSPORT PT WITH BELONGINGS
[2019-01-23] MEDS ORDERED: SODIUM CHLORIDE 0.9%, 500ML IVBOLUS PRN ×2 (13:00)
[2019-01-23] MEDS ORDERED: DOCUSATE 100 MG CAPSULE PO PRN (13:00)
[2019-01-23] MEDS ORDERED: BISACODYL 10 MG SUPP PR PRN (13:00)
[2019-01-23] MEDS ORDERED: ENALAPRILAT 1.25 MG/ML, 2ML IVPush PRN (13:00)
[2019-01-23] MEDS ORDERED: DEXTROSE 4 GM TAB.CHEW PO PRN (13:00)
[2019-01-23] MEDS ORDERED: IBUPROFEN 600 MG TABLET PO PRN (13:00)
[2019-01-23] MEDS ORDERED: PHARMACY MAY ADJ FOR RENAL FX MC PRN (13:00)
[2019-01-23] MEDS ORDERED: VANCOMYCIN PER PHARMACY MC PRN (13:00)
[2019-01-23] MEDS ORDERED: DEXTROSE 50%, 50ML SYRINGE IVPush PRN (13:00)
[2019-01-23] MEDS ORDERED: GLUCAGON 1 MG IM PRN (13:00)
[2019-01-23] MEDS ORDERED: ONDANSETRON ODT 4 MG PO PRN (13:00)
[2019-01-23] MEDS ORDERED: hydrALAzine 20 MG/ML, 1ML IVPush PRN (13:00)
[2019-01-23] MEDS ORDERED: OMNIPAQUE 350 MG/ML, 100ML BOTTLE ONE (13:09)
[2019-01-23 13:13] LABS: MICROSCOPIC NOT IND
[2019-01-23 13:16] LABS: CULTURE INDICATED? NO
[2019-01-23] MEDS ORDERED: PHARMACOKINETIC MONITORING MC PRN (13:30)
[2019-01-23] MEDS ORDERED: ACETAMINOPHEN 500 MG TABLET PO PRN ×2 (14:00→23:00)
[2019-01-23] MEDS: FAMOTIDINE 20 MG/2 ML IV SCH (14:53)
[2019-01-23] MEDS: INSULIN LISPRO 100 UNITS/ML, PEN SQ-INSULIN SCH ×2 (16:00→23:01)
[2019-01-23] MEDS: NOREPINEPHRINE 4 MG in SODIUM CHLORIDE 0.9% 246 ML IV PRN (16:24)
[2019-01-23] MEDS: SODIUM CHLORIDE 0.9% 1,000 ML IV SCH (16:25)
[2019-01-23] MEDS: PHENYTOIN 50 MG TAB.CHEW PO SCH ×2 (16:25→23:00)
[2019-01-23] MEDS: PANCRELIPASE 24,000 CAPSULE.DR PO SCH (16:25)
[2019-01-23] MEDS: PIPERACILLIN/TAZO/PMX 4.5GM 50 ML IVPB SCH ×2 (16:25→21:21)
[2019-01-23] MEDS: OXCARBAZEPINE 300MG TABLET PO SCH (21:19)
[2019-01-23] MEDS: LACTULOSE 10 GM/15 ML UDC PO SCH (21:19)
[2019-01-23] MEDS: POTASSIUM CHLORIDE 10% 20 MEQ/15 ML UDC PO SCH (21:19)
[2019-01-23] MEDS: LACOSAMIDE 50 MG TABLET PO SCH (21:19)
[2019-01-23] MEDS: LEVETIRACETAM 500 MG TABLET PO SCH (21:19)
[2019-01-23] MEDS: SODIUM CHLORIDE FLUSH 10ML SYR IVF SCH (21:20)
[2019-01-23] MEDS ORDERED: IBUPROFEN 200 MG TABLET ONE (22:55)
[2019-01-23] MEDS: TEMPLATE NON-FORMULARY MED. (Insulin Degludec (Tresiba Flextouch U-100) 20 UNITS) SQ SCH (23:01)
[2019-01-24] MEDS: FAMOTIDINE 20 MG/2 ML IV SCH ×3 (01:13→21:50)
[2019-01-24] MEDS: SODIUM CHLORIDE 0.9% 1,000 ML IV SCH ×2 (02:11→21:50)
[2019-01-24] MEDS: NOREPINEPHRINE 4 MG in SODIUM CHLORIDE 0.9% 246 ML IV PRN (03:05)
[2019-01-24] MEDS: PIPERACILLIN/TAZO/PMX 4.5GM 50 ML IVPB SCH ×4 (03:05→21:50)
[2019-01-24 04:30] VITALS: BP 103/67
[2019-01-24 04:40] LABS: MEAN CORPUSCULAR HEMOGLOBIN 28.2 pg (27.5-34.5); MEAN CORPUSCULAR HGB CONC 33.9 g/dL (33.2-36.2); MEAN CORPUSCULAR VOLUME 83.4 fL (81-97); MEAN PLATELET VOLUME 9.6 fL (7.4-10.4); PLATELET COUNT 116 x10^3/uL (130-400); RED BLOOD COUNT 4.12 x10^6/uL (4.38-5.82); RED CELL DISTRIBUTION WIDTH 15.3 % (9.4-14.8)
[2019-01-24 04:48] LABS: CHLORIDE 116 mmol/L (98-107)
[2019-01-24 04:54] LABS: ABSOLUTE RETICS # 0.066 x10^6/uL (0.5-1.5); RED BLOOD COUNT 4.11 x10^6/uL (4.38-5.82); RETICULOCYTE COUNT % 1.61 % (0.5-1.5)
[2019-01-24 04:55] LABS: ALANINE AMINOTRANSFERASE 82 U/L (12-78); ALKALINE PHOSPHATASE 415 U/L (45-117); ANION GAP 7 mmol/L (5-15); BILIRUBIN,TOTAL 1.5 mg/dL (0.2-1.0); CALCIUM 7.4 mg/dL (8.5-10.1); CREATININE 1.08 mg/dL (0.7-1.3); TOTAL PROTEIN 5.9 g/dL (6.4-8.2)
[2019-01-24] MEDS: VANCOMYCIN 1,300 MG in SODIUM CHLORIDE 0.9% 250 ML IV SCH (05:09)
[2019-01-24 05:36] LABS: MD YES
[2019-01-24 05:40] LABS: ANISOCYTOSIS 1+; BAND#(MANUAL) 4.21 x10^3/uL; BANDS%(MANUAL) 26 % (0-7); EOS#(MANUAL) 0.16 x10^3/uL (0.0-0.4); EOS% (MANUAL) 1 % (1-7); LYMPH#(MANUAL) 0.32 x10^3/uL (1-3.4); LYMPHS% (MANUAL) 2 % (22-44); MONOS#(MANUAL) 0.32 x10^3/uL (0.3-2.7); MONOS% (MANUAL) 2 % (2-9); SEG#(MANUAL) 11.18 x10^3/uL (1.8-6.8); SEGS% (MANUAL) 69 % (42-75)
[2019-01-24 05:41] LABS: <PLATELET ESTIMATE> DECREASED; <PLT MORPHOLOGY> NORMAL PLT MORPH
[2019-01-24] MEDS ORDERED: VANCOMYCIN 1,200 MG in SODIUM CHLORIDE 0.9% 250 ML IV SCH (06:00)
[2019-01-24] MEDS: PANCRELIPASE 24,000 CAPSULE.DR PO SCH ×3 (08:16→17:10)
[2019-01-24] MEDS: INSULIN LISPRO 100 UNITS/ML, PEN SQ-INSULIN SCH ×4 (08:34→21:56)
[2019-01-24] MEDS: SODIUM CHLORIDE FLUSH 10ML SYR IVF SCH ×2 (08:37→21:50)
[2019-01-24] MEDS: LACTULOSE 10 GM/15 ML UDC PO SCH ×2 (08:38→21:53)
[2019-01-24] MEDS: LACOSAMIDE 50 MG TABLET PO SCH ×2 (08:38→21:53)
[2019-01-24] MEDS: PHENYTOIN 50 MG TAB.CHEW PO SCH ×3 (08:39→21:51)
[2019-01-24] MEDS: LEVETIRACETAM 500 MG TABLET PO SCH ×2 (08:39→21:52)
[2019-01-24] MEDS: POTASSIUM CHLORIDE 10% 20 MEQ/15 ML UDC PO SCH ×2 (08:39→21:53)
[2019-01-24] MEDS: OXCARBAZEPINE 300MG TABLET PO SCH ×2 (08:45→21:53)
[2019-01-24] MEDS: TEMPLATE NON-FORMULARY MED. (Insulin Degludec (Tresiba Flextouch U-100) 20 UNITS) SQ SCH (21:00)
[2019-01-25] MEDS: VANCOMYCIN 1,300 MG in SODIUM CHLORIDE 0.9% 250 ML IV SCH ×2 (00:03→18:22)
[2019-01-25] MEDS: PIPERACILLIN/TAZO/PMX 4.5GM 50 ML IVPB SCH ×4 (03:07→22:43)
[2019-01-25 05:46] LABS: ALANINE AMINOTRANSFERASE 72 U/L (12-78); ALBUMIN 1.9 g/dL (3.4-5.0); ANION GAP 7 mmol/L (5-15); CALCIUM 7.8 mg/dL (8.5-10.1); CHLORIDE 119 mmol/L (98-107); CREATININE 1.09 mg/dL (0.7-1.3)
[2019-01-25 05:48] LABS: ALKALINE PHOSPHATASE 368 U/L (45-117); BILIRUBIN,TOTAL 0.5 mg/dL (0.2-1.0); TOTAL PROTEIN 5.4 g/dL (6.4-8.2)
[2019-01-25 06:00] LABS: MEAN CORPUSCULAR HEMOGLOBIN 28.1 pg (27.5-34.5); MEAN CORPUSCULAR HGB CONC 33.9 g/dL (33.2-36.2); MEAN CORPUSCULAR VOLUME 82.9 fL (81-97); MEAN PLATELET VOLUME 9.7 fL (7.4-10.4); PLATELET COUNT 71 x10^3/uL (130-400); RED BLOOD COUNT 3.88 x10^6/uL (4.38-5.82); RED CELL DISTRIBUTION WIDTH 15.6 % (9.4-14.8)
[2019-01-25 06:01] LABS: MD YES
[2019-01-25 06:03] LABS: ANISOCYTOSIS 1+; BAND#(MANUAL) 0.33 x10^3/uL; BANDS%(MANUAL) 5 % (0-7); EOS#(MANUAL) 0.33 x10^3/uL (0.0-0.4); EOS% (MANUAL) 5 % (1-7); LYMPH#(MANUAL) 0.26 x10^3/uL (1-3.4); LYMPHS% (MANUAL) 4 % (22-44); MONOS#(MANUAL) 0.39 x10^3/uL (0.3-2.7); MONOS% (MANUAL) 6 % (2-9); NRBC % (MANUAL) 1 % (0-1); SEGS% (MANUAL) 80 % (42-75)
[2019-01-25 06:04] LABS: <PLATELET ESTIMATE> DECREASED; <PLT MORPHOLOGY> NORMAL PLT MORPH
[2019-01-25] MEDS: INSULIN LISPRO 100 UNITS/ML, PEN SQ-INSULIN SCH ×4 (06:41→22:35)
[2019-01-25] MEDS: PANCRELIPASE 24,000 CAPSULE.DR PO SCH ×3 (08:03→16:14)
[2019-01-25] MEDS ORDERED: POTASSIUM CHLORIDE 20 MEQ TAB.ER.PRT ONE (08:23)
[2019-01-25] MEDS: SODIUM CHLORIDE 0.9% 1,000 ML IV SCH ×2 (08:54→18:22)
[2019-01-25] MEDS: FAMOTIDINE 20 MG/2 ML IV SCH (08:55)
[2019-01-25] MEDS: SODIUM CHLORIDE FLUSH 10ML SYR IVF SCH ×2 (08:55→22:45)
[2019-01-25] MEDS: LACOSAMIDE 50 MG TABLET PO SCH ×2 (08:56→22:44)
[2019-01-25] MEDS: LEVETIRACETAM 500 MG TABLET PO SCH ×2 (08:56→22:45)
[2019-01-25] MEDS: PHENYTOIN 50 MG TAB.CHEW PO SCH ×3 (08:56→22:44)
[2019-01-25] MEDS: OXCARBAZEPINE 300MG TABLET PO SCH ×2 (08:57→22:43)
[2019-01-25] MEDS: POTASSIUM CHLORIDE 10% 20 MEQ/15 ML UDC PO SCH ×2 (08:58→21:00)
[2019-01-25] MEDS: LACTULOSE 10 GM/15 ML UDC PO SCH ×2 (08:59→22:42)
[2019-01-25] MEDS: TEMPLATE NON-FORMULARY MED. (Insulin Degludec (Tresiba Flextouch U-100) 20 UNITS) SQ SCH (21:00)
[2019-01-25] MEDS ORDERED: FAMOTIDINE 20 MG TABLET PO SCH (21:00)
[2019-01-25] MEDS ORDERED: POTASSIUM CHLORIDE 20 MEQ PACKET ONE (21:41)
[2019-01-26 00:02] VITALS: BP 92/55
[2019-01-26] MEDS: SODIUM CHLORIDE 0.9% 1,000 ML IV SCH ×2 (04:14→15:00)
[2019-01-26] MEDS: PIPERACILLIN/TAZO/PMX 4.5GM 50 ML IVPB SCH ×4 (04:14→22:49)
[2019-01-26] MEDS: INSULIN LISPRO 100 UNITS/ML, PEN SQ-INSULIN SCH ×4 (04:16→20:57)
[2019-01-26 05:37] LABS: MEAN CORPUSCULAR HGB CONC 33.8 g/dL (33.2-36.2); MEAN CORPUSCULAR VOLUME 83.1 fL (81-97); MEAN PLATELET VOLUME 9.1 fL (7.4-10.4); PLATELET COUNT 68 x10^3/uL (130-400); RED CELL DISTRIBUTION WIDTH 15.3 % (9.4-14.8)
[2019-01-26 05:45] LABS: CHLORIDE 118 mmol/L (98-107)
[2019-01-26 05:58] LABS: ALANINE AMINOTRANSFERASE 107 U/L (12-78); ALBUMIN 1.9 g/dL (3.4-5.0); ALKALINE PHOSPHATASE 781 U/L (45-117); ANION GAP 6 mmol/L (5-15); CALCIUM 7.7 mg/dL (8.5-10.1); CREATININE 0.88 mg/dL (0.7-1.3); TOTAL PROTEIN 5.3 g/dL (6.4-8.2)
[2019-01-26 06:15] LABS: BASOPHILS # (AUTO) 0.01 x10^3/uL (0-0.1); BASOPHILS % (AUTO) 0 % (0-1); EOSINOPHILS # (AUTO) 0.28 x10^3/uL (0-0.4); EOSINOPHILS % (AUTO) 4 % (1-7); LYMPHOCYTES # (AUTO) 0.37 x10^3/uL (1-3.4); LYMPHOCYTES % (AUTO) 6 % (22-44); MD SCAN; MONOCYTES # (AUTO) 0.38 x10^3/uL (0.2-0.8); MONOCYTES % (AUTO) 6 % (2-9); NEUTROPHILS # (AUTO) 5.53 x10^3/uL (1.8-6.8); NEUTROPHILS % (AUTO) 84 % (42-75)
[2019-01-26 07:29] VITALS: BP 98/59
[2019-01-26] MEDS ORDERED: POTASSIUM CHLORIDE 20 MEQ PACKET ONE (09:17)
[2019-01-26] MEDS: LACOSAMIDE 50 MG TABLET PO SCH ×2 (09:22→20:55)
[2019-01-26] MEDS: OXCARBAZEPINE 300MG TABLET PO SCH ×2 (09:23→20:55)
[2019-01-26] MEDS: PHENYTOIN 50 MG TAB.CHEW PO SCH ×3 (09:23→20:55)
[2019-01-26] MEDS: PANCRELIPASE 24,000 CAPSULE.DR PO SCH ×3 (09:23→16:07)
[2019-01-26] MEDS: LEVETIRACETAM 500 MG TABLET PO SCH ×2 (09:23→20:55)
[2019-01-26] MEDS: LACTULOSE 10 GM/15 ML UDC PO SCH ×2 (09:24→20:56)
[2019-01-26] MEDS: POTASSIUM CHLORIDE 10% 20 MEQ/15 ML UDC PO SCH ×2 (09:24→20:56)
[2019-01-26] MEDS: SODIUM CHLORIDE FLUSH 10ML SYR IVF SCH ×2 (09:24→21:01)
[2019-01-26] MEDS ORDERED: GADOBUTROL 10 MMOL/10 ML PFS ONE (10:26)
[2019-01-26] MEDS: VANCOMYCIN 1,300 MG in SODIUM CHLORIDE 0.9% 250 ML IV SCH (12:05)
[2019-01-26 12:22] VITALS: BP 93/64
[2019-01-26 19:10] VITALS: BP 119/80
[2019-01-26] MEDS: TEMPLATE NON-FORMULARY MED. (Insulin Degludec (Tresiba Flextouch U-100) 20 UNITS) SQ SCH (20:56)
[2019-01-27] MEDS: VANCOMYCIN 1,500 MG in SODIUM CHLORIDE 0.9% 250 ML IV SCH ×2 (00:22→18:38)
[2019-01-27 00:43] VITALS: BP 104/62
[2019-01-27 04:05] LABS: MEAN CORPUSCULAR HEMOGLOBIN 28.1 pg (27.5-34.5); MEAN CORPUSCULAR VOLUME 82.6 fL (81-97); MEAN PLATELET VOLUME 9.3 fL (7.4-10.4); PLATELET COUNT 72 x10^3/uL (130-400); RED BLOOD COUNT 3.58 x10^6/uL (4.38-5.82); RED CELL DISTRIBUTION WIDTH 15.4 % (9.4-14.8)
[2019-01-27 04:12] LABS: CHLORIDE 114 mmol/L (98-107)
[2019-01-27 04:23] LABS: BASOPHILS # (AUTO) 0.02 x10^3/uL (0-0.1); BASOPHILS % (AUTO) 0 % (0-1); EOSINOPHILS # (AUTO) 0.35 x10^3/uL (0-0.4); EOSINOPHILS % (AUTO) 6 % (1-7); LYMPHOCYTES # (AUTO) 0.48 x10^3/uL (1-3.4); LYMPHOCYTES % (AUTO) 8 % (22-44); MD SCAN; MONOCYTES # (AUTO) 0.56 x10^3/uL (0.2-0.8); MONOCYTES % (AUTO) 9 % (2-9); NEUTROPHILS # (AUTO) 4.69 x10^3/uL (1.8-6.8); NEUTROPHILS % (AUTO) 77 % (42-75)
[2019-01-27 04:30] LABS: ALANINE AMINOTRANSFERASE 178 U/L (12-78); ALBUMIN 1.9 g/dL (3.4-5.0); ALKALINE PHOSPHATASE 1041 U/L (45-117); ANION GAP 7 mmol/L (5-15); BILIRUBIN,TOTAL 1.6 mg/dL (0.2-1.0); CALCIUM 7.8 mg/dL (8.5-10.1); CREATININE 0.95 mg/dL (0.7-1.3); TOTAL PROTEIN 5.3 g/dL (6.4-8.2)
[2019-01-27] MEDS: PIPERACILLIN/TAZO/PMX 4.5GM 50 ML IVPB SCH ×4 (04:40→21:27)
[2019-01-27] MEDS: SODIUM CHLORIDE 0.9% 1,000 ML IV SCH ×2 (04:40→16:55)
[2019-01-27 06:41] VITALS: BP 100/63
[2019-01-27] MEDS: LEVETIRACETAM 500 MG TABLET PO SCH ×2 (08:24→21:29)
[2019-01-27] MEDS: OXCARBAZEPINE 300MG TABLET PO SCH ×2 (08:24→21:30)
[2019-01-27] MEDS: PHENYTOIN 50 MG TAB.CHEW PO SCH ×3 (08:26→21:28)
[2019-01-27] MEDS: LACTULOSE 10 GM/15 ML UDC PO SCH ×2 (08:27→21:30)
[2019-01-27] MEDS: LACOSAMIDE 50 MG TABLET PO SCH ×2 (08:27→21:29)
[2019-01-27] MEDS: SODIUM CHLORIDE FLUSH 10ML SYR IVF SCH ×2 (08:27→21:28)
[2019-01-27] MEDS: PANCRELIPASE 24,000 CAPSULE.DR PO SCH ×3 (08:27→16:55)
[2019-01-27] MEDS: POTASSIUM CHLORIDE 10% 20 MEQ/15 ML UDC PO SCH ×2 (08:27→21:31)
[2019-01-27] MEDS: INSULIN LISPRO 100 UNITS/ML, PEN SQ-INSULIN SCH ×3 (08:27→21:00)
[2019-01-27 19:19] VITALS: BP 118/82
[2019-01-27] MEDS: TEMPLATE NON-FORMULARY MED. (Insulin Degludec (Tresiba Flextouch U-100) 20 UNITS) SQ SCH (21:00)
[2019-01-27] MEDS ORDERED: POTASSIUM CHLORIDE 10% 40 MEQ/30 ML UDC ONE (21:23)
[2019-01-28 00:53] VITALS: BP 125/78
[2019-01-28] MEDS: PIPERACILLIN/TAZO/PMX 4.5GM 50 ML IVPB SCH ×2 (03:39→10:21)
[2019-01-28 04:13] LABS: MEAN CORPUSCULAR HEMOGLOBIN 27.5 pg (27.5-34.5); MEAN CORPUSCULAR HGB CONC 33.4 g/dL (33.2-36.2); MEAN CORPUSCULAR VOLUME 82.3 fL (81-97); MEAN PLATELET VOLUME 9.2 fL (7.4-10.4); PLATELET COUNT 83 x10^3/uL (130-400); RED BLOOD COUNT 3.92 x10^6/uL (4.38-5.82); RED CELL DISTRIBUTION WIDTH 15.5 % (9.4-14.8)
[2019-01-28 04:22] LABS: ANION GAP 8 mmol/L (5-15); CALCIUM 8.1 mg/dL (8.5-10.1); CHLORIDE 114 mmol/L (98-107)
[2019-01-28 04:43] LABS: ALANINE AMINOTRANSFERASE 218 U/L (12-78); ALKALINE PHOSPHATASE 1118 U/L (45-117); BILIRUBIN,TOTAL 3.2 mg/dL (0.2-1.0); CREATININE 0.88 mg/dL (0.7-1.3); TOTAL PROTEIN 5.8 g/dL (6.4-8.2)
[2019-01-28 05:03] LABS: BASOPHILS % (AUTO) 0 % (0-1); EOSINOPHILS # (AUTO) 0.27 x10^3/uL (0-0.4); EOSINOPHILS % (AUTO) 3 % (1-7); LYMPHOCYTES # (AUTO) 0.44 x10^3/uL (1-3.4); LYMPHOCYTES % (AUTO) 5 % (22-44); MD SCAN; MONOCYTES # (AUTO) 0.61 x10^3/uL (0.2-0.8); MONOCYTES % (AUTO) 7 % (2-9); NEUTROPHILS # (AUTO) 8.17 x10^3/uL (1.8-6.8); NEUTROPHILS % (AUTO) 86 % (42-75)
[2019-01-28] MEDS: SODIUM CHLORIDE 0.9% 1,000 ML IV SCH (05:45)
[2019-01-28] MEDS: INSULIN LISPRO 100 UNITS/ML, PEN SQ-INSULIN SCH (07:00)
[2019-01-28] MEDS: PANCRELIPASE 24,000 CAPSULE.DR PO SCH (07:18)
[2019-01-28 07:46] VITALS: BP 103/64
[2019-01-28] MEDS ORDERED: POTASSIUM CHLORIDE 20 MEQ PACKET ONE (08:10)
[2019-01-28] MEDS: PHENYTOIN 50 MG TAB.CHEW PO SCH (08:15)
[2019-01-28] MEDS: LEVETIRACETAM 500 MG TABLET PO SCH (08:16)
[2019-01-28] MEDS: OXCARBAZEPINE 300MG TABLET PO SCH (08:16)
[2019-01-28] MEDS: LACTULOSE 10 GM/15 ML UDC PO SCH (08:16)
[2019-01-28] MEDS: LACOSAMIDE 50 MG TABLET PO SCH (08:16)
[2019-01-28] MEDS: POTASSIUM CHLORIDE 10% 20 MEQ/15 ML UDC PO SCH (08:18)
[2019-01-28] MEDS: SODIUM CHLORIDE FLUSH 10ML SYR IVF SCH (08:18)
== END 2019-01-28 11:58 | disposition left against medical advice (07) | DRG 871 ==
LOC: ED 09:24 → EDIP 10:47 → CCU 13:13 → ICU 01-24 10:07 → 4WST 01-25 18:33
PROVIDERS: ADMIT Family Medicine; ATTEND Family Medicine
PROC: 02H633Z Insertion of Infusion Device into Right Atrium, Percutaneous Approach (ICD-10-PCS; principal; 2019-01-23)
DX: A40.9 Streptococcal sepsis, unspecified (principal); R65.21 Severe sepsis with septic shock; K85.91 Acute pancreatitis with uninfected necrosis, unspecified; E72.20 Disorder of urea cycle metabolism, unspecified; K86.3 Pseudocyst of pancreas; E46 Unspecified protein-calorie malnutrition; G40.109 Localization-related (focal) (partial) symptomatic epilepsy and epileptic syndromes with simple partial seizures, not intractable, without status epilepticus; I85.00 Esophageal varices without bleeding; J91.8 Pleural effusion in other conditions classified elsewhere; J98.11 Atelectasis; K76.6 Portal hypertension; K80.21 Calculus of gallbladder without cholecystitis with obstruction; K86.2 Cyst of pancreas; B95.4 Other streptococcus as the cause of diseases classified elsewhere; E11.9 Type 2 diabetes mellitus without complications; Z79.4 Long term (current) use of insulin; D64.9 Anemia, unspecified; D69.59 Other secondary thrombocytopenia; Z82.49 Family history of ischemic heart disease and other diseases of the circulatory system; Z83.3 Family history of diabetes mellitus; E87.6 Hypokalemia; Z53.21 Procedure and treatment not carried out due to patient leaving prior to being seen by health care provider; I11.9 Hypertensive heart disease without heart failure; I86.4 Gastric varices; J98.4 Other disorders of lung; Z86.718 Personal history of other venous thrombosis and embolism; Z90.410 Acquired total absence of pancreas; Z68.29 Body mass index [BMI] 29.0-29.9, adult
CPT/HCPCS: 36415; 84145; 87400; 96361; 99291; J3490; 70553; 71045; 74177; 74181; 80053; 80202; 81003; 82010; 82140; 82306; 82800; 82962; 83010; 83605; 83615; 83735; 84100; 84425; 85025; 85045; 85610; 87040; 87077; 87081; 87181; 93005; 93306; 96374; A9585; G0378; J2543; J3370; Q9967; J3475; J7030; J7050

== ENCOUNTER 2020-07-23 11:02 | Inpatient (IN) | payer OTHER ==
[~2020-07-23] VITALS: Ht 162.6 cm; Wt 83.5 kg
[~2020-07-23 11:02] MED LIST changes: +CIPR500T3 PO; +LACO100T PO; +LACT10SO28 PO; +LEVE750T37 PO; +OXCA300T19 PO; +PHEN50TA4 PO
--- NOTE | 2020-07-23 11:30 | NUR ---
THIS RN UNABLE TO OBTAIN PIV ACCESS, AWAITING OTHER STAFF TO ATTEMPT INSERTION VIA US.
[2020-07-23] MEDS ORDERED: HYDROmorphone 2 MG/ML, 1ML ONE ×2 (11:48→12:06)
[2020-07-23] MEDS ORDERED: ONDANSETRON 2MG/ML, 2ML ONE (11:48)
[2020-07-23] MEDS: HYDROmorphone 2 MG/ML, 1ML IVPush PRN ×2 (11:51→12:10)
[2020-07-23] MEDS ORDERED: SODIUM CHLORIDE 0.9% 1,000ML IVBOLUS ONE (12:00)
[2020-07-23] MEDS ORDERED: SODIUM CHLORIDE FLUSH 10ML SYR IVF ONE (12:00)
[2020-07-23] MEDS ORDERED: ONDANSETRON 2MG/ML, 2ML IVPush ONE (12:00)
[2020-07-23 12:02] LABS: BASOPHILS % (AUTO) 1 % (0-1); EOSINOPHILS % (AUTO) 1 % (1-7); LYMPHOCYTES % (AUTO) 13 % (22-44); MEAN CORPUSCULAR HEMOGLOBIN 28.8 pg (27.5-34.5); MEAN PLATELET VOLUME 9.8 fL (7.4-10.4); MONOCYTES % (AUTO) 5 % (2-9); NEUTROPHILS % (AUTO) 80 % (42-75); PLATELET COUNT 65 x10^3/uL (130-400); RED BLOOD COUNT 5.46 x10^6/uL (4.38-5.82); RED CELL DISTRIBUTION WIDTH 14.6 % (9.4-14.8)
[2020-07-23 12:07] LABS: MD NO
[2020-07-23 12:10] LABS: INTERNATIONAL NORMALIZED RATIO 1.16 (0.93-1.1)
--- NOTE | 2020-07-23 12:10 | NUR ---
PT SITTING UPRIGHT ON GURNEY. AT BEDSIDE. PT STATES PAIN HAS IMPROVED, "ITS ABOUT 80-90% BETTER THAN BEFORE". PT PLACED ON CONTINUOUS COMMUNITY RECREATION PROGRAMMER AND PULSE OX. PT PROVIDED WARM BLANKET. CALL LIGHT WITHIN REACH AND FALL PRECAUTIONS IN PLACE. PT DENIES ANY ADDITIONAL NEEDS AT THIS TIME.
[2020-07-23 12:11] LABS: ALANINE AMINOTRANSFERASE 203 U/L (12-78); ALBUMIN 3.2 g/dL (3.4-5.0); ANION GAP 4 mmol/L (5-15); CHLORIDE 109 mmol/L (98-107); CREATININE 1.01 mg/dL (0.7-1.3)
[2020-07-23 12:13] LABS: ALKALINE PHOSPHATASE 800 U/L (45-117); BILIRUBIN,TOTAL 1.2 mg/dL (0.2-1.0); TOTAL PROTEIN 8.2 g/dL (6.4-8.2)
--- NOTE | 2020-07-23 12:21 | NUR ---
TASK RN: PT CURRENTLY IN CT. UNABLE TO GET EKG AT THIS TIME.
--- NOTE | 2020-07-23 12:30 | NUR ---
SUPPLEMENTAL O2 PLACED FOR DESAT WHILE SLEEPING, ERP AWARE.
[2020-07-23] MEDS ORDERED: OMNIPAQUE 350 MG/ML, 100ML BOTTLE ONE (12:34)
--- NOTE | 2020-07-23 13:10 | NUR ---
PT SITTING UPRIGHT ON GURNEY CALMLY WITH EYES CLOSED, ABLE TO DOZE OFF. PT ABLE TO VOID, URINE SENT TO LAB. PT STATES PAIN "IS SO MUCH BETTER, ITS ALMOST GONE". PT DENIES ANY ADDITIONAL NEEDS AT THE TIME, CALL LIGHT WITHIN REACH, FALL PRECAUTIONS IN PLACE. ERP AT BEDSIDE DISCUSSING PLAN OF CARE.
[2020-07-23 13:30] LABS: MICROSCOPIC NOT IND
[2020-07-23] MEDS ORDERED: INSU100V35 SQ (13:32)
[2020-07-23] MEDS ORDERED: INSU100I51 SQ (13:34)
[2020-07-23] MEDS ORDERED: CONGAPLEX PO (13:37)
[2020-07-23] MEDS ORDERED: BETAFOOD PO (13:37)
[2020-07-23] MEDS ORDERED: OKRA PEPSIN PO (13:37)
--- NOTE | 2020-07-23 13:50 | NUR ---
[facility] PROVIDER AT BS, PT LAYING ON GURNEY AWAKE & COMFORTABLE, RESPONDS APPROP TO STAFF, NAD AFTER PAIN MEDS GIVEN, NO NEEDS AT THIS TIME, AT BS, CALL LIGHT WITHIN REACH.
[2020-07-23] MEDS ORDERED: SODIUM CHLORIDE FLUSH 10ML SYR IVF PRN (14:00)
[2020-07-23] MEDS ORDERED: SODIUM CHLORIDE 0.9% 1,000 ML IV ONE (14:00)
--- NOTE | 2020-07-23 14:10 | NUR ---
PT UPRIGHT ON GURNEY. PROVIDED A URINAL TO VOID, NAD. NO OTHER NEEDS AT THIS TIME. CALL LIGHT WITHIN REACH, FALL PRECAUTIONS IN PLACE.
[2020-07-23] MEDS ORDERED: ENALAPRILAT 1.25 MG/ML, 2ML IVPush PRN (15:00)
[2020-07-23] MEDS ORDERED: LABETALOL 5MG/ML, 20ML IVPush PRN (15:00)
[2020-07-23] MEDS ORDERED: DEXTROSE 50%, 50ML SYRINGE IVPush PRN (15:00)
[2020-07-23] MEDS ORDERED: GLUCAGON 1 MG IM PRN (15:00)
[2020-07-23] MEDS ORDERED: BISACODYL 10 MG SUPP PR PRN (15:00)
[2020-07-23] MEDS ORDERED: POLYETHYLENE GLYCOL 17 GM PACKET PO PRN (15:00)
[2020-07-23] MEDS ORDERED: IBUPROFEN 600 MG TABLET PO PRN (15:00)
[2020-07-23] MEDS ORDERED: DEXTROSE 4 GM TAB.CHEW PO PRN (15:00)
--- NOTE | 2020-07-23 15:05 | NUR ---
PT SITTING UPRIGHT ON GURNEY, ABLE TO DOZE OFF. PT STATES HE FEELS "THE SAME, MINIMAL PAIN". PT PROVIDED URINAL TO VOID. DENIES ANY ADDITIONAL NEEDS AT THIS TIME.
--- NOTE | 2020-07-23 15:47 | NUR ---
Pt to be admitted to MEDICAL, room 340. Report called to CLAUDIA.
[2020-07-23] MEDS: HEPARIN 5,000 UNITS/ML, 1ML SQ SCH (16:00)
[2020-07-23] MEDS: INSULIN LISPRO 100 UNITS/ML, PEN SQ-INSULIN SCH ×2 (16:00→20:01)
[2020-07-23] MEDS: morphine SULFATE 10 MG/ML, 1ML IVPush PRN (16:16)
[2020-07-23] MEDS ORDERED: POTASSIUM CHLORIDE 20 MEQ in LACTATED RINGERS 1,000 ML IV SCH (16:23)
[2020-07-23] MEDS ORDERED: HYDROmorphone 1 MG/ML, 1ML INJ IV ONE (18:30)
[2020-07-23 19:04] VITALS: BP 154/89
[2020-07-23] MEDS ORDERED: INSULIN DEGLUDEC 40 UNIT SQ SCH (21:00)
[2020-07-23] MEDS ORDERED: PHARMACOKINETIC MONITORING MC PRN (23:45)
[2020-07-24] MEDS ORDERED: VANCOMYCIN PER PHARMACY MC PRN
[2020-07-24] MEDS: D5%-0.45NACL+KCL 20MEQ 1,000 ML IV SCH ×3 (00:11→18:00)
[2020-07-24] MEDS: SODIUM CHLORIDE FLUSH 10ML SYR IVF SCH ×2 (00:12→09:50)
[2020-07-24] MEDS: HEPARIN 5,000 UNITS/ML, 1ML SQ SCH ×2 (00:19)
[2020-07-24] MEDS: morphine SULFATE 10 MG/ML, 1ML IVPush PRN ×3 (00:34→18:09)
[2020-07-24 00:38] LABS: BASOPHILS % (AUTO) 0 % (0-1); EOSINOPHILS % (AUTO) 0 % (1-7); LYMPHOCYTES % (AUTO) 8 % (22-44); MEAN CORPUSCULAR HEMOGLOBIN 28.3 pg (27.5-34.5); MEAN CORPUSCULAR HGB CONC 33.3 g/dL (33.2-36.2); MEAN PLATELET VOLUME 10.1 fL (7.4-10.4); MONOCYTES % (AUTO) 8 % (2-9); NEUTROPHILS % (AUTO) 84 % (42-75); PLATELET COUNT 50 x10^3/uL (130-400); RED BLOOD COUNT 4.89 x10^6/uL (4.38-5.82); RED CELL DISTRIBUTION WIDTH 14.6 % (9.4-14.8)
[2020-07-24 01:00] LABS: MD SCAN
[2020-07-24] MEDS ORDERED: VANCOMYCIN 1,500 MG in SODIUM CHLORIDE 0.9% 250 ML IV ONE (01:30)
[2020-07-24 01:37] VITALS: BP 104/62
[2020-07-24 06:15] LABS: BASOPHILS % (AUTO) 0 % (0-1); EOSINOPHILS % (AUTO) 2 % (1-7); LYMPHOCYTES % (AUTO) 13 % (22-44); MEAN CORPUSCULAR HEMOGLOBIN 28.5 pg (27.5-34.5); MEAN CORPUSCULAR HGB CONC 33.3 g/dL (33.2-36.2); MEAN PLATELET VOLUME 10.2 fL (7.4-10.4); MONOCYTES % (AUTO) 8 % (2-9); NEUTROPHILS % (AUTO) 78 % (42-75); RED CELL DISTRIBUTION WIDTH 14.9 % (9.4-14.8)
[2020-07-24 06:18] LABS: ALBUMIN 2.6 g/dL (3.4-5.0); ANION GAP 4 mmol/L (5-15); CHLORIDE 112 mmol/L (98-107)
[2020-07-24 06:23] LABS: ALANINE AMINOTRANSFERASE 147 U/L (12-78); ALKALINE PHOSPHATASE 576 U/L (45-117); BILIRUBIN,TOTAL 2.6 mg/dL (0.2-1.0); CREATININE 0.59 mg/dL (0.7-1.3); TOTAL PROTEIN 6.8 g/dL (6.4-8.2)
[2020-07-24 06:29] LABS: PLATELET COUNT 49 x10^3/uL (130-400)
[2020-07-24 06:49] LABS: MD SCAN
[2020-07-24] MEDS ORDERED: POTASSIUM CHLORIDE 20 MEQ TAB.ER.PRT PO ONE (07:00)
[2020-07-24] MEDS: INSULIN LISPRO 100 UNITS/ML, PEN SQ-INSULIN SCH ×4 (07:00→21:00)
[2020-07-24] MEDS ORDERED: MAGNESIUM OXIDE 400 MG TABLET PO ONE (07:00)
[2020-07-24 07:34] VITALS: BP 113/73
[2020-07-24] MEDS: SENNA/DOCUSATE TABLET PO SCH (09:50)
[2020-07-24] MEDS: VANCOMYCIN 1,500 MG in SODIUM CHLORIDE 0.9% 250 ML IV SCH ×2 (11:48→19:41)
[2020-07-24 12:40] VITALS: BP 117/75
[2020-07-24] MEDS: CEFTRIAXONE PMX 2GM/50ML 50 ML IVPB SCH (15:16)
[2020-07-24 19:10] VITALS: BP 114/69
[2020-07-24] MEDS: INSULIN DEGLUDEC 20 UNIT SQ SCH (21:00)
[2020-07-25 00:39] VITALS: BP 106/67
[2020-07-25] MEDS: VANCOMYCIN 1,500 MG in SODIUM CHLORIDE 0.9% 250 ML IV SCH ×4 (03:59→23:35)
[2020-07-25] MEDS: SODIUM CHLORIDE FLUSH 10ML SYR IVF SCH ×3 (03:59→20:35)
[2020-07-25] MEDS: D5%-0.45NACL+KCL 20MEQ 1,000 ML IV SCH ×2 (06:22→20:36)
[2020-07-25 06:23] LABS: ALANINE AMINOTRANSFERASE 149 U/L (12-78); ALBUMIN 2.7 g/dL (3.4-5.0); ANION GAP 6 mmol/L (5-15); CALCIUM 8.5 mg/dL (8.5-10.1); CHLORIDE 109 mmol/L (98-107); CREATININE 0.79 mg/dL (0.7-1.3)
[2020-07-25 06:25] LABS: ALKALINE PHOSPHATASE 616 U/L (45-117); BILIRUBIN,TOTAL 1.9 mg/dL (0.2-1.0); TOTAL PROTEIN 7.4 g/dL (6.4-8.2)
[2020-07-25 06:38] LABS: BASOPHILS % (AUTO) 1 % (0-1); EOSINOPHILS % (AUTO) 3 % (1-7); LYMPHOCYTES % (AUTO) 20 % (22-44); MEAN CORPUSCULAR HEMOGLOBIN 28.5 pg (27.5-34.5); MEAN PLATELET VOLUME 9.9 fL (7.4-10.4); MONOCYTES % (AUTO) 7 % (2-9); NEUTROPHILS % (AUTO) 70 % (42-75); PLATELET COUNT 56 x10^3/uL (130-400); RED BLOOD COUNT 5.45 x10^6/uL (4.38-5.82); RED CELL DISTRIBUTION WIDTH 15.1 % (9.4-14.8)
[2020-07-25 06:48] LABS: MD NO
[2020-07-25] MEDS: INSULIN LISPRO 100 UNITS/ML, PEN SQ-INSULIN SCH ×4 (07:00→20:59)
[2020-07-25 07:45] VITALS: BP 122/72
[2020-07-25] MEDS: SENNA/DOCUSATE TABLET PO SCH (08:44)
[2020-07-25] MEDS: VANCOMYCIN 50 MG/ML ORAL SUSP PO SCH (08:44)
[2020-07-25] MEDS ORDERED: CHLORHEXIDINE 15 ML UDC ONE (10:35)
[2020-07-25] MEDS ORDERED: MIDAZOLAM 1 MG/ML, 2ML ONE (10:44)
[2020-07-25] MEDS ORDERED: OXYcodone 5 MG/5 ML ORAL.SOL UDC PO PRN (11:00)
[2020-07-25] MEDS ORDERED: HYDROmorphone 1 MG/ML, 1ML INJ IVPush PRN (11:00)
[2020-07-25] MEDS ORDERED: FENTANYL PF 100 MCG/2ML IV PRN (11:00)
[2020-07-25] MEDS ORDERED: MEPERIDINE/PF 25MG/0.5ML IVPush PRN (11:00)
[2020-07-25] MEDS ORDERED: PROMETHAZINE 12.5 MG SUPP PR PRN (11:00)
[2020-07-25] MEDS ORDERED: OMNIPAQUE 350 MG/ML, 50 ML BOTTLE ONE (12:08)
[2020-07-25] MEDS ORDERED: LACTATED RINGERS 1,000 ML IVBOLUS ONE (14:00)
[2020-07-25] MEDS: CEFTRIAXONE PMX 2GM/50ML 50 ML IVPB SCH (14:32)
[2020-07-25 15:15] VITALS: BP 124/80
[2020-07-25] MEDS: LACTATED RINGERS 1,000 ML IV SCH (15:52)
[2020-07-25 19:28] VITALS: BP 128/76
[2020-07-25] MEDS: PROPRANOLOL 20 MG TABLET PO SCH (20:35)
[2020-07-25] MEDS: INSULIN DEGLUDEC 20 UNIT SQ SCH (20:36)
[2020-07-25 20:38] VITALS: BP 137/83
[2020-07-26 01:43] VITALS: BP 117/72
[2020-07-26] MEDS: LACTATED RINGERS 1,000 ML IV SCH (02:00)
[2020-07-26 03:53] LABS: BASOPHILS % (AUTO) 1 % (0-1); EOSINOPHILS % (AUTO) 3 % (1-7); LYMPHOCYTES % (AUTO) 20 % (22-44); MEAN CORPUSCULAR HEMOGLOBIN 28.4 pg (27.5-34.5); MEAN CORPUSCULAR HGB CONC 33.2 g/dL (33.2-36.2); MEAN PLATELET VOLUME 9.5 fL (7.4-10.4); MONOCYTES % (AUTO) 10 % (2-9); NEUTROPHILS % (AUTO) 67 % (42-75); PLATELET COUNT 64 x10^3/uL (130-400); RED BLOOD COUNT 4.73 x10^6/uL (4.38-5.82); RED CELL DISTRIBUTION WIDTH 14.4 % (9.4-14.8)
[2020-07-26 03:55] LABS: ALANINE AMINOTRANSFERASE 95 U/L (12-78); ALBUMIN 2.3 g/dL (3.4-5.0); ANION GAP 3 mmol/L (5-15); CHLORIDE 112 mmol/L (98-107); CREATININE 0.64 mg/dL (0.7-1.3)
[2020-07-26 03:57] LABS: ALKALINE PHOSPHATASE 441 U/L (45-117); TOTAL PROTEIN 5.9 g/dL (6.4-8.2); VANCOMYCIN,TROUGH 16.4 mcg/mL (5.0-10.0)
[2020-07-26 04:12] LABS: MD NO
[2020-07-26] MEDS: VANCOMYCIN 1,500 MG in SODIUM CHLORIDE 0.9% 250 ML IV SCH (04:35)
[2020-07-26] MEDS: PANTOPRAZOLE 40MG TABLET PO SCH (05:51)
[2020-07-26] MEDS: D5%-0.45NACL+KCL 20MEQ 1,000 ML IV SCH ×2 (05:51→14:43)
[2020-07-26] MEDS: PROPRANOLOL 20 MG TABLET PO SCH ×2 (05:51→16:46)
[2020-07-26 05:54] VITALS: BP 116/75
[2020-07-26 06:59] VITALS: BP 116/75
[2020-07-26] MEDS: INSULIN LISPRO 100 UNITS/ML, PEN SQ-INSULIN SCH ×4 (07:05→21:12)
[2020-07-26] MEDS: SENNA/DOCUSATE TABLET PO SCH (07:35)
[2020-07-26] MEDS: SODIUM CHLORIDE FLUSH 10ML SYR IVF SCH ×2 (08:42→21:02)
[2020-07-26] MEDS: VANCOMYCIN 50 MG/ML ORAL SUSP PO SCH (08:43)
[2020-07-26] MEDS: AMPICILLIN/SULBACTAM 3 GM in SODIUM CHLORIDE 0.9% 100 ML IV SCH ×2 (13:20→19:26)
[2020-07-26 14:47] VITALS: BP 120/76
[2020-07-26 16:46] VITALS: BP 118/73
[2020-07-26 18:55] VITALS: BP 123/75
[2020-07-26] MEDS: INSULIN DEGLUDEC 20 UNIT SQ SCH (21:00)
[2020-07-27] MEDS: D5%-0.45NACL+KCL 20MEQ 1,000 ML IV SCH ×3 (00:10→17:00)
[2020-07-27 01:10] VITALS: BP 114/70
[2020-07-27] MEDS: AMPICILLIN/SULBACTAM 3 GM in SODIUM CHLORIDE 0.9% 100 ML IV SCH ×2 (01:31→09:27)
[2020-07-27] MEDS: PANTOPRAZOLE 40MG TABLET PO SCH (06:08)
[2020-07-27] MEDS: PROPRANOLOL 20 MG TABLET PO SCH (06:08)
[2020-07-27 06:24] LABS: BASOPHILS % (AUTO) 1 % (0-1); EOSINOPHILS % (AUTO) 3 % (1-7); LYMPHOCYTES % (AUTO) 23 % (22-44); MEAN CORPUSCULAR HEMOGLOBIN 28.6 pg (27.5-34.5); MEAN CORPUSCULAR HGB CONC 33.3 g/dL (33.2-36.2); MEAN PLATELET VOLUME 9.5 fL (7.4-10.4); MONOCYTES % (AUTO) 8 % (2-9); NEUTROPHILS % (AUTO) 64 % (42-75); PLATELET COUNT 72 x10^3/uL (130-400); RED BLOOD COUNT 4.93 x10^6/uL (4.38-5.82); RED CELL DISTRIBUTION WIDTH 14.5 % (9.4-14.8)
[2020-07-27 06:35] LABS: ANION GAP 4 mmol/L (5-15); CALCIUM 7.7 mg/dL (8.5-10.1); CHLORIDE 109 mmol/L (98-107); CREATININE 0.85 mg/dL (0.7-1.3)
[2020-07-27 06:48] LABS: MD NO
[2020-07-27 07:57] VITALS: BP 138/84
[2020-07-27] MEDS: VANCOMYCIN 50 MG/ML ORAL SUSP PO SCH (08:10)
[2020-07-27] MEDS: SODIUM CHLORIDE FLUSH 10ML SYR IVF SCH (08:12)
[2020-07-27] MEDS: SENNA/DOCUSATE TABLET PO SCH (08:12)
[2020-07-27] MEDS: INSULIN LISPRO 100 UNITS/ML, PEN SQ-INSULIN SCH ×3 (08:44→16:00)
[2020-07-27] MEDS ORDERED: AMOXICILLIN/CLAV 500-125MG TABLET PO SCH (12:00)
[2020-07-27 12:28] VITALS: BP 135/83
[2020-07-27] MEDS ORDERED: AMOX-367 PO (14:47)
[2020-07-27] MEDS ORDERED: VANC1VIA3 PO (14:47)
[2020-07-27] MEDS ORDERED: PROP20TA PO (14:53)
== END 2020-07-27 17:17 | disposition home or self-care (01) | DRG 444 ==
LOC: ED 11:31 → EDIP 14:25 → INTOOBSV 14:25 → 3N 15:58 → OBSVTOIN 07-24 08:06
PROVIDERS: ADMIT Family Medicine; ATTEND Family Medicine
PROC: 0F798DZ Dilation of Common Bile Duct with Intraluminal Device, Via Natural or Artificial Opening Endoscopic (ICD-10-PCS; 2020-07-25)
PROC: BF141ZZ Fluoroscopy of Gallbladder, Bile Ducts and Pancreatic Ducts using Low Osmolar Contrast (ICD-10-PCS; 2020-07-25)
PROC: 30233R1 Transfusion of Nonautologous Platelets into Peripheral Vein, Percutaneous Approach (ICD-10-PCS; principal; 2020-07-25 10:00)
DX: K80.61 Calculus of gallbladder and bile duct with cholecystitis, unspecified, with obstruction (principal); I81 Portal vein thrombosis; K85.90 Acute pancreatitis without necrosis or infection, unspecified; I85.10 Secondary esophageal varices without bleeding; I87.1 Compression of vein; K22.10 Ulcer of esophagus without bleeding; K76.6 Portal hypertension; K86.1 Other chronic pancreatitis; K86.3 Pseudocyst of pancreas; R78.81 Bacteremia; D69.59 Other secondary thrombocytopenia; D70.9 Neutropenia, unspecified; E11.9 Type 2 diabetes mellitus without complications; I86.4 Gastric varices; I86.8 Varicose veins of other specified sites; K29.80 Duodenitis without bleeding; K31.89 Other diseases of stomach and duodenum; K59.00 Constipation, unspecified; K74.60 Unspecified cirrhosis of liver; Z82.49 Family history of ischemic heart disease and other diseases of the circulatory system; Z83.3 Family history of diabetes mellitus; E87.6 Hypokalemia; E86.0 Dehydration; R16.1 Splenomegaly, not elsewhere classified; B95.4 Other streptococcus as the cause of diseases classified elsewhere; Z20.828 Contact with and (suspected) exposure to other viral communicable diseases; E83.42 Hypomagnesemia
CPT/HCPCS: 36415; 74328; 96361; 96374; 96375; 96376; 99285; J3370; 71045; 74177; 74181; 80048; 80053; 80202; 81003; 82962; 83036; 83605; 83690; 83735; 85025; 85610; 85730; 86850; 86900; 87040; 87077; 87181; 87635; 93005; G0378; J0295; J0696; J1170; J1644; J2250; J2405; J3480; Q9967; J1815; J2270; J7030; J7050; J7120; P9035

== ENCOUNTER 2020-09-09 12:20 | Day surgery (SDC) | payer OTHER ==
[~2020-09-09] VITALS: Ht 162.6 cm; Wt 81.9 kg
[~2020-09-09 12:20] MED LIST changes: +AMOX-367 PO; +BETAFOOD PO; +CONGAPLEX PO; +INSU100I51 SQ; +INSU100V35 SQ; -LACO10SO IV; +LACO10SO3 IV; +OKRA PEPSIN PO; +PROP20TA PO; +VANC1VIA3 PO
[2020-09-09 13:00] VITALS: BP 127/76
[2020-09-09 13:12] VITALS: BP 127/76
[2020-09-09] MEDS ORDERED: CHLORHEXIDINE 15 ML UDC ONE (13:17)
[2020-09-09] MEDS ORDERED: PRAV20TA2 PO (13:24)
[2020-09-09] MEDS ORDERED: LACTATED RINGERS 1,000 ML IV SCH (13:30)
[2020-09-09 14:11] LABS: ALANINE AMINOTRANSFERASE 108 U/L (12-78); ANION GAP 6 mmol/L (5-15); CALCIUM 8.5 mg/dL (8.5-10.1); CHLORIDE 111 mmol/L (98-107); CREATININE 0.75 mg/dL (0.7-1.3)
[2020-09-09 14:13] LABS: ALKALINE PHOSPHATASE 200 U/L (45-117); BILIRUBIN,TOTAL 1.2 mg/dL (0.2-1.0)
[2020-09-09] MEDS ORDERED: PROPOFOL 10 MG/ML, 20ML ONE (15:57)
[2020-09-09] MEDS ORDERED: ROCURONIUM 10 MG/ML,10ML ONE (15:57)
[2020-09-09] MEDS ORDERED: ONDANSETRON 2MG/ML, 2ML ONE (15:57)
[2020-09-09] MEDS ORDERED: DEXAMETHASONE 4 MG/ML, 1ML ONE (15:57)
[2020-09-09] MEDS ORDERED: SUCCINYLCHOLINE 20 MG/ML, 10ML ONE (15:57)
[2020-09-09] MEDS ORDERED: MIDAZOLAM 1 MG/ML, 2ML ONE (16:01)
[2020-09-09] MEDS ORDERED: FENTANYL PF 100 MCG/2ML ONE (16:01)
[2020-09-09] MEDS ORDERED: PROMETHAZINE 25 MG/ML, 1ML IVPush PRN (17:00)
[2020-09-09] MEDS ORDERED: MIDAZOLAM 1 MG/ML, 2ML IV PRN (17:00)
[2020-09-09] MEDS ORDERED: OXYcodone 5 MG/5 ML ORAL.SOL UDC PO PRN (17:00)
[2020-09-09] MEDS ORDERED: ONDANSETRON 2MG/ML, 2ML IVPush PRN (17:00)
[2020-09-09] MEDS ORDERED: FENTANYL PF 100 MCG/2ML IV PRN (17:00)
[2020-09-09] MEDS ORDERED: DIAZEPAM 5 MG/ML, 2ML IVPush PRN (17:00)
[2020-09-09] MEDS ORDERED: PROMETHAZINE 12.5 MG SUPP PR PRN (17:00)
[2020-09-09] MEDS ORDERED: ALBUTEROL SULFATE 2.5 MG/3 ML NPPB PRN (17:00)
[2020-09-09] MEDS ORDERED: MEPERIDINE/PF 25MG/0.5ML IVPush PRN (17:00)
[2020-09-09] MEDS ORDERED: EPHEDRINE 50 MG/ML, 1ML IVPush PRN (17:00)
[2020-09-09] MEDS ORDERED: hydrALAzine 20 MG/ML, 1ML IV PRN (17:00)
[2020-09-09] MEDS ORDERED: LABETALOL 5MG/ML, 20ML IV PRN (17:00)
[2020-09-09] MEDS ORDERED: HYDROmorphone 1 MG/ML, 1ML INJ IVPush PRN (17:00)
[2020-09-09] MEDS ORDERED: DIPHENHYDRAMINE 50 MG/ML, 1ML IVPush PRN (17:00)
[2020-09-09] MEDS ORDERED: OMNIPAQUE 350 MG/ML, 50 ML BOTTLE ONE (18:00)
== END 2020-09-09 18:15 | disposition home or self-care (01) ==
LOC: OUT 12:20
PROVIDERS: ATTEND Internal Medicine
DX: Z46.59 Encounter for fitting and adjustment of other gastrointestinal appliance and device (principal); K83.1 Obstruction of bile duct; K85.90 Acute pancreatitis without necrosis or infection, unspecified; E11.9 Type 2 diabetes mellitus without complications; Z20.828 Contact with and (suspected) exposure to other viral communicable diseases; Z79.4 Long term (current) use of insulin; Z79.899 Other long term (current) drug therapy
CPT/HCPCS: 43276; 74328; 80053; 82962; 87635; 93005; C1894; C2625; J0330; J1100; J2250; J2405; J2704; J3010; J7120; Q9967

== ENCOUNTER → 2020-09-16 | Outpatient (CLI) | payer OTHER ==
[~2020-09-16] MED LIST changes: +PRAV20TA2 PO
[2020-09-16 09:49] LABS: BASOPHILS % (AUTO) 0 % (0-1); EOSINOPHILS % (AUTO) 2 % (1-7); LYMPHOCYTES % (AUTO) 21 % (22-44); MEAN CORPUSCULAR HEMOGLOBIN 28.6 pg (27.5-34.5); MEAN CORPUSCULAR HGB CONC 34.3 g/dL (33.2-36.2); MEAN PLATELET VOLUME 9.1 fL (7.4-10.4); MONOCYTES % (AUTO) 7 % (2-9); NEUTROPHILS % (AUTO) 69 % (42-75); PLATELET COUNT 57 x10^3/uL (130-400); RED BLOOD COUNT 5.02 x10^6/uL (4.38-5.82); RED CELL DISTRIBUTION WIDTH 14.6 % (9.4-14.8)
[2020-09-16 09:54] LABS: MD NO
[2020-09-16 09:57] LABS: ALBUMIN 3.1 g/dL (3.4-5.0); ANION GAP 6 mmol/L (5-15); CALCIUM 8.4 mg/dL (8.5-10.1); CHLORIDE 108 mmol/L (98-107)
[2020-09-16 10:01] LABS: ALANINE AMINOTRANSFERASE 80 U/L (12-78); ALKALINE PHOSPHATASE 178 U/L (45-117); BILIRUBIN,TOTAL 0.7 mg/dL (0.2-1.0); CREATININE 0.84 mg/dL (0.7-1.3); TOTAL PROTEIN 7.3 g/dL (6.4-8.2)
== END | disposition home or self-care (01) ==
LOC: STAR 07:55
PROVIDERS: ATTEND Family Medicine
DX: Z01.818 Encounter for other preprocedural examination (principal); R22.1 Localized swelling, mass and lump, neck; Z20.828 Contact with and (suspected) exposure to other viral communicable diseases
CPT/HCPCS: 80053; 85025; 87635; 93005

== ENCOUNTER 2020-09-22 08:42 | Day surgery (SDC) | payer OTHER ==
[~2020-09-22] VITALS: Ht 162.6 cm; Wt 81.4 kg
[2020-09-22 09:23] VITALS: BP 133/78
[2020-09-22] MEDS ORDERED: CHLORHEXIDINE 15 ML UDC MM ONE (09:30)
[2020-09-22] MEDS ORDERED: LACTATED RINGERS 1,000 ML IV SCH (10:00)
[2020-09-22] MEDS ORDERED: BUPIVACAINE/PF 0.25% ONE (10:05)
[2020-09-22] MEDS ORDERED: EPINEPHRINE 1 MG/ML, 1ML ONE (10:05)
[2020-09-22] MEDS ORDERED: MIDAZOLAM 1 MG/ML, 2ML ONE (10:33)
[2020-09-22] MEDS ORDERED: FENTANYL PF 250 MCG/5ML ONE (10:33)
[2020-09-22] MEDS ORDERED: CEFAZOLIN 1,000 MG ONE (10:43)
[2020-09-22] MEDS ORDERED: NEOSTIGMINE 1 MG/ML, 10ML ONE (10:43)
[2020-09-22] MEDS ORDERED: PROPOFOL 10 MG/ML, 20ML ONE (10:43)
[2020-09-22] MEDS ORDERED: ROCURONIUM 10MG/ML,5ML ONE (10:43)
[2020-09-22] MEDS ORDERED: GLYCOPYRROLATE 0.2MG/1ML, 5ML ONE (10:43)
[2020-09-22] MEDS ORDERED: hydrALAzine 20 MG/ML, 1ML IV PRN (12:00)
[2020-09-22] MEDS ORDERED: ONDANSETRON 2MG/ML, 2ML IVPush PRN (12:00)
[2020-09-22] MEDS ORDERED: FENTANYL PF 100 MCG/2ML IV PRN (12:00)
[2020-09-22] MEDS ORDERED: MEPERIDINE/PF 25MG/0.5ML IVPush PRN (12:00)
[2020-09-22] MEDS ORDERED: HYDROmorphone 1 MG/ML, 1ML INJ IVPush PRN (12:00)
[2020-09-22] MEDS ORDERED: OXYcodone 5 MG/5 ML ORAL.SOL UDC PO PRN (12:00)
[2020-09-22] MEDS ORDERED: morphine SULFATE 10 MG/ML, 1ML IVPush PRN (12:00)
[2020-09-22] MEDS ORDERED: LABETALOL 5MG/ML, 20ML IV PRN (12:00)
[2020-09-22] MEDS ORDERED: ACETAMINOPHEN 325 MG TABLET PO PRN (12:00)
== END 2020-09-22 15:00 | disposition home or self-care (01) ==
LOC: OUT 08:42
PROVIDERS: ATTEND Surgery
DX: R22.1 Localized swelling, mass and lump, neck (principal); E11.9 Type 2 diabetes mellitus without complications; Z79.4 Long term (current) use of insulin; Z79.899 Other long term (current) drug therapy; Z83.3 Family history of diabetes mellitus
CPT/HCPCS: 21552; 82962; 88305; J0171; J0690; J2250; J2704; J2710; J3010

== ENCOUNTER 2020-11-02 08:16 | Emergency (ER) | payer OTHER ==
[~2020-11-02] VITALS: Ht 162.6 cm; Wt 79.0 kg
[2020-11-02] MEDS ORDERED: SODIUM CHLORIDE 0.9% 1,000 ML IV ONE (09:00)
[2020-11-02] MEDS ORDERED: ONDANSETRON 2MG/ML, 2ML IVPush ONE (09:00)
[2020-11-02] MEDS ORDERED: SODIUM CHLORIDE 0.9% 1,000ML IVBOLUS ONE (09:00)
[2020-11-02] MEDS ORDERED: ONDANSETRON 2MG/ML, 2ML ONE (09:16)
[2020-11-02] MEDS ORDERED: HYDROmorphone 1 MG/ML, 1ML INJ ONE ×2 (09:16→10:52)
[2020-11-02] MEDS: HYDROmorphone 2 MG/ML, 1ML IVPush PRN ×2 (09:28→10:57)
[2020-11-02 09:32] LABS: BASOPHILS % (AUTO) 0 % (0-1); EOSINOPHILS % (AUTO) 1 % (1-7); LYMPHOCYTES % (AUTO) 10 % (22-44); MEAN CORPUSCULAR HEMOGLOBIN 28.5 pg (27.5-34.5); MEAN CORPUSCULAR HGB CONC 33.9 g/dL (33.2-36.2); MEAN PLATELET VOLUME 11.3 fL (7.4-10.4); MONOCYTES % (AUTO) 4 % (2-9); NEUTROPHILS % (AUTO) 85 % (42-75); PLATELET COUNT 70 x10^3/uL (130-400); RED BLOOD COUNT 5.06 x10^6/uL (4.38-5.82); RED CELL DISTRIBUTION WIDTH 14.9 % (9.4-14.8)
[2020-11-02 09:40] LABS: ALANINE AMINOTRANSFERASE 104 U/L (12-78); ALBUMIN 2.7 g/dL (3.4-5.0); ANION GAP 6 mmol/L (5-15); CALCIUM 8.4 mg/dL (8.5-10.1); CHLORIDE 109 mmol/L (98-107); CREATININE 1.09 mg/dL (0.7-1.3)
[2020-11-02 09:42] LABS: ALKALINE PHOSPHATASE 371 U/L (45-117); BILIRUBIN,TOTAL 2.2 mg/dL (0.2-1.0); TOTAL PROTEIN 7.1 g/dL (6.4-8.2)
--- NOTE | 2020-11-02 09:52 | NUR ---
PT REPORTS AND APPEARS TO BE IN EXTENSIVE PAIN HE LOCATES PAIN IN THE R FLANK AREA AND HAS DISTENTION OF THE ABD
[2020-11-02 09:56] LABS: MD SCAN
[2020-11-02] MEDS ORDERED: OMNIPAQUE 350 MG/ML, 100ML BOTTLE ONE (10:04)
[2020-11-02] MEDS ORDERED: KETOROLAC 30 MG/1 ML ONE (10:52)
[2020-11-02] MEDS ORDERED: KETOROLAC 30 MG/1 ML IVPush ONE (11:00)
[2020-11-02 11:29] VITALS: BP 104/50
[2020-11-02 12:10] LABS: MICROSCOPIC AUTO
--- NOTE | 2020-11-02 13:10 | NUR ---
RECEIVED REPORT FROM JAMMIE REYES PT TO BE MTF AFTER RECEIVED DILAUDID PAIN MEDS. PIV ALREADY REMOVED. Addendum: 11/02/20 at 1326 by JAY DAVID PAPERWORK COMPLETED BY JAMMIE MCGILL.
--- NOTE | 2020-11-02 13:27 | NUR ---
PT AMBULATED TO DC WITH STEADY GAIT.
[2020-11-05] MEDS ORDERED: INSU100I18 SC (09:10)
[2020-11-05] MEDS ORDERED: OXYC1TAB14 PO (09:10)
[2020-11-05] MEDS ORDERED: Insulin pump (09:16)
== END 2020-11-02 13:28 | disposition home or self-care (01) ==
LOC: ED 09:21
DX: N20.1 Calculus of ureter (principal); N23 Unspecified renal colic; R11.0 Nausea; E11.9 Type 2 diabetes mellitus without complications; Z79.4 Long term (current) use of insulin
CPT/HCPCS: 36415; 74177; 80053; 81001; 83690; 85025; 96361; 96374; 96375; 96376; 99285; J1170; J1885; J2405; J7030; Q9967

== ENCOUNTER → 2020-11-05 | Outpatient (CLI) | payer OTHER ==
[~2020-11-05] MED LIST changes: +INSU100I18 SC; +Insulin pump; +OXYC1TAB14 PO
[2020-11-05 09:39] LABS: ALBUMIN 2.7 g/dL (3.4-5.0); ANION GAP 6 mmol/L (5-15); CALCIUM 8.2 mg/dL (8.5-10.1); CHLORIDE 105 mmol/L (98-107)
[2020-11-05 09:43] LABS: ALANINE AMINOTRANSFERASE 79 U/L (12-78); ALKALINE PHOSPHATASE 333 U/L (45-117); BILIRUBIN,TOTAL 2.1 mg/dL (0.2-1.0); CREATININE 0.78 mg/dL (0.7-1.3); TOTAL PROTEIN 7.5 g/dL (6.4-8.2)
== END | disposition home or self-care (01) ==
LOC: STAR 08:35
PROVIDERS: ATTEND Internal Medicine
DX: Z01.812 Encounter for preprocedural laboratory examination (principal); Z20.822 Contact with and (suspected) exposure to COVID-19; K85.90 Acute pancreatitis without necrosis or infection, unspecified; K83.09 Other cholangitis
CPT/HCPCS: 80053; 87635; 93005

== ENCOUNTER 2020-11-11 10:24 | Day surgery (SDC) | payer OTHER ==
[~2020-11-11] VITALS: Ht 162.6 cm; Wt 78.0 kg
[~2020-11-11 10:24] MED LIST changes: -CIPR500T3 PO; +CIPR500T4 PO
[2020-11-11] MEDS ORDERED: CHLORHEXIDINE 15 ML UDC ONE (10:38)
[2020-11-11 10:41] VITALS: BP 142/83
[2020-11-11] MEDS ORDERED: FENTANYL PF 100 MCG/2ML ONE (11:00)
[2020-11-11] MEDS ORDERED: SUCCINYLCHOLINE 20 MG/ML, 10ML ONE (11:00)
[2020-11-11] MEDS ORDERED: LIDOCAINE-MPF 2% ,5ML ONE (11:00)
[2020-11-11] MEDS ORDERED: PROPOFOL 10 MG/ML, 20ML ONE (11:00)
[2020-11-11] MEDS ORDERED: CHLORHEXIDINE 15 ML UDC MM ONE (11:00)
[2020-11-11] MEDS ORDERED: DEXAMETHASONE 4 MG/ML, 5ML ONE (11:14)
[2020-11-11] MEDS ORDERED: ONDANSETRON 2MG/ML, 2ML ONE (11:14)
[2020-11-11] MEDS ORDERED: LACTATED RINGERS 1,000 ML IV SCH (11:30)
[2020-11-11] MEDS ORDERED: OXYcodone 5 MG/5 ML ORAL.SOL UDC PO PRN (11:30)
[2020-11-11] MEDS ORDERED: FENTANYL PF 100 MCG/2ML IV PRN (11:30)
[2020-11-11] MEDS ORDERED: HYDROmorphone 1 MG/ML, 1ML INJ IVPush PRN (11:30)
[2020-11-11] MEDS ORDERED: ONDANSETRON 2MG/ML, 2ML IVPush PRN (11:30)
[2020-11-11] MEDS ORDERED: OMNIPAQUE 350 MG/ML, 50 ML BOTTLE ONE (11:46)
[2020-11-11] MEDS ORDERED: ONDA4TAB7 PO (22:54)
== END 2020-11-11 14:17 | disposition home or self-care (01) ==
LOC: OUT 10:24
PROVIDERS: ATTEND Internal Medicine
DX: Z46.59 Encounter for fitting and adjustment of other gastrointestinal appliance and device (principal); K85.90 Acute pancreatitis without necrosis or infection, unspecified; K86.1 Other chronic pancreatitis; K80.31 Calculus of bile duct with cholangitis, unspecified, with obstruction; E10.9 Type 1 diabetes mellitus without complications; Z79.891 Long term (current) use of opiate analgesic; Z79.899 Other long term (current) drug therapy; Z87.442 Personal history of urinary calculi
CPT/HCPCS: 43264; 43276; 74328; 82962; C1769; C1874; J0330; J1100; J2405; J2704; J3010; Q9967

== ENCOUNTER 2020-11-11 20:19 | Inpatient (IN) | payer OTHER ==
[~2020-11-11] VITALS: Ht 162.6 cm; Wt 81.9 kg
--- NOTE | 2020-11-11 20:56 | NUR ---
PATIENT RESTING IN BED. VS REMAIN STABLE ON RA. STATES HE HAD ERCP PROCEDURE TODAY AROUND NOON TIME AND IS NOW HAVING LUQ ABDOMINAL PAIN. HE REPORTS CALLING ON-CALL AND WAS TOLD TO COME TO ER TO RULE OUT PERFORATION. CALL YOUNG IN REACH. FAMILY MEMBER AT BEDSIDE. STATES HE TOOK ONE PERCOCET AT 530PM ABD ZOFRAN AROUND 230PM
[2020-11-11 21:26] LABS: BASOPHILS % (AUTO) 0 % (0-1); EOSINOPHILS % (AUTO) 0 % (1-7); LYMPHOCYTES % (AUTO) 2 % (22-44); MEAN CORPUSCULAR HGB CONC 34.4 g/dL (33.2-36.2); MEAN PLATELET VOLUME 10.4 fL (7.4-10.4); MONOCYTES % (AUTO) 7 % (2-9); NEUTROPHILS % (AUTO) 91 % (42-75); PLATELET COUNT 66 x10^3/uL (130-400); RED BLOOD COUNT 5.37 x10^6/uL (4.38-5.82); RED CELL DISTRIBUTION WIDTH 15.4 % (9.4-14.8)
[2020-11-11 21:29] LABS: MD NO
[2020-11-11] MEDS ORDERED: ONDANSETRON 2MG/ML, 2ML IVPush ONE (21:30)
[2020-11-11] MEDS ORDERED: SODIUM CHLORIDE FLUSH 10ML SYR IVF ONE (21:30)
[2020-11-11] MEDS ORDERED: ONDANSETRON 2MG/ML, 2ML ONE (21:32)
[2020-11-11] MEDS ORDERED: MORPHINE SULFATE 4 MG/ML, 1ML ONE ×2 (21:32→23:03)
[2020-11-11 21:37] LABS: ALANINE AMINOTRANSFERASE 163 U/L (12-78); ALBUMIN 2.8 g/dL (3.4-5.0); ANION GAP 8 mmol/L (5-15); CALCIUM 8.8 mg/dL (8.5-10.1); CHLORIDE 105 mmol/L (98-107); CREATININE 1.15 mg/dL (0.7-1.3)
[2020-11-11 21:40] LABS: ALKALINE PHOSPHATASE 495 U/L (45-117); BILIRUBIN,TOTAL 3.8 mg/dL (0.2-1.0); TOTAL PROTEIN 7.8 g/dL (6.4-8.2)
--- NOTE | 2020-11-11 21:40 | NUR ---
PATIENT RESTING IN BED; BACK FROM CT. IN NAD. WILL CONTINUE TO MONITOR.
[2020-11-11] MEDS: MORPHINE SULFATE 4 MG/ML, 1ML IVPush PRN ×2 (21:41→23:06)
[2020-11-11] MEDS ORDERED: OMNIPAQUE 350 MG/ML, 100ML BOTTLE ONE (22:14)
--- NOTE | 2020-11-11 22:47 | NUR ---
PATIENT RESTING IN BED IN NAD. VS REMAIN STABLE. PATIENT REPORTS "PAIN IS STARTING TO GO BACK UP" BUT DECLINES FURTHER PAIN MEDICATION AT THIS TIME. WILL CONTINUE TO MONITOR.
--- NOTE | 2020-11-11 22:52 | NUR ---
PATIENT'S SERUM GLUCOSE RESULTED HIGH IN THE 300'S. PATIENT STATES HE TOOK 12 UNITS OF NOVOL AROUND 1900 PATENT ATTORNEY
[2020-11-11] MEDS ORDERED: ONDA4TAB7 PO (22:54)
--- NOTE | 2020-11-11 22:55 | NUR ---
DR. HOBBS NOTIFIED OF ELEVATED SERUM GLUCOSE AND PATIENT STATES HE TOOK 12 UNITS NOVOLOG AT 1900.
--- NOTE | 2020-11-11 23:01 | NUR ---
REPORT RECIEVED FROM NANO JEFFERS
--- NOTE | 2020-11-11 23:03 | NUR ---
REPORT GIVEN TO ARSALAN MCGILL
--- NOTE | 2020-11-11 23:15 | NUR ---
PT MEDICATED FOR PAIN PER EMAR, FLUIDS RUNNING, PT ON ALL MONITORS, PROVIDED URINAL PER REQUEST, NO OTHER NEEDS AT THIS TIME
[2020-11-11] MEDS ORDERED: SODIUM CHLORIDE 0.9% 1,000ML IVBOLUS ONE (23:30)
--- NOTE | 2020-11-11 23:33 | NUR ---
REPORT GIVEN TO NANO SCHREIBER
[2020-11-12] MEDS ORDERED: morphine SULFATE 10 MG/ML, 1ML IVPush PRN ×2 (00:30→01:00)
[2020-11-12] MEDS ORDERED: MORPHINE SULFATE 4 MG/ML, 1ML IVPush PRN (00:30)
[2020-11-12] MEDS ORDERED: DOCUSATE 100 MG CAPSULE PO PRN (01:00)
[2020-11-12] MEDS ORDERED: DEXTROSE 50%, 50ML SYRINGE IVPush PRN (01:00)
[2020-11-12] MEDS ORDERED: LABETALOL 5MG/ML, 20ML IVPush PRN (01:00)
[2020-11-12] MEDS ORDERED: POLYETHYLENE GLYCOL 17 GM PACKET PO PRN (01:00)
[2020-11-12] MEDS ORDERED: DEXTROSE 4 GM TAB.CHEW PO PRN (01:00)
[2020-11-12] MEDS ORDERED: GLUCAGON 1 MG IM PRN (01:00)
[2020-11-12] MEDS ORDERED: ONDANSETRON 2MG/ML, 2ML IVPush PRN (01:00)
[2020-11-12] MEDS: OXYcodone IR 5MG TABLET PO PRN ×4 (01:13→20:55)
[2020-11-12] MEDS ORDERED: INSULIN LISPRO 100 UNIT/ML, 3ML VIAL IVPush ONE (01:30)
[2020-11-12 02:05] LABS: BASOPHILS % (AUTO) 0 % (0-1); EOSINOPHILS % (AUTO) 0 % (1-7); LYMPHOCYTES % (AUTO) 1 % (22-44); MEAN CORPUSCULAR HEMOGLOBIN 28.8 pg (27.5-34.5); MEAN CORPUSCULAR HGB CONC 34.4 g/dL (33.2-36.2); MEAN PLATELET VOLUME 10.7 fL (7.4-10.4); MONOCYTES % (AUTO) 2 % (2-9); NEUTROPHILS % (AUTO) 97 % (42-75); PLATELET COUNT 67 x10^3/uL (130-400); RED BLOOD COUNT 5.11 x10^6/uL (4.38-5.82); RED CELL DISTRIBUTION WIDTH 15.7 % (9.4-14.8)
[2020-11-12 02:06] VITALS: BP 143/84
[2020-11-12 02:13] LABS: ALANINE AMINOTRANSFERASE 144 U/L (12-78); ALBUMIN 2.6 g/dL (3.4-5.0); ANION GAP 8 mmol/L (5-15); CALCIUM 8.2 mg/dL (8.5-10.1); CHLORIDE 109 mmol/L (98-107)
[2020-11-12 02:15] LABS: ALKALINE PHOSPHATASE 450 U/L (45-117); CREATININE 0.92 mg/dL (0.7-1.3); TOTAL PROTEIN 7.1 g/dL (6.4-8.2)
[2020-11-12 02:17] LABS: MD NO
[2020-11-12] MEDS ORDERED: MAGNESIUM SULFATE PMX 2GM/50ML 50 ML IV ONE (07:00)
[2020-11-12] MEDS: PANTOPRAZOLE 40MG TABLET PO SCH (07:38)
[2020-11-12 08:33] VITALS: BP 117/74
[2020-11-12] MEDS: INSULIN LISPRO 100 UNITS/ML, PEN SQ-INSULIN SCH ×4 (08:44→21:26)
[2020-11-12] MEDS: SODIUM CHLORIDE FLUSH 10ML SYR IVF SCH ×2 (08:56→20:56)
[2020-11-12] MEDS: SODIUM CHLORIDE 0.9% 1,000 ML IV SCH ×3 (10:44→23:13)
[2020-11-12] MEDS: INSULIN GLARGINE 100 UNITS/ML, PEN SQ-INSULIN SCH ×2 (11:42→21:25)
[2020-11-12] MEDS: ACETAMINOPHEN 325 MG TABLET PO PRN ×2 (12:07→21:24)
[2020-11-12 14:11] VITALS: BP 99/62
[2020-11-12 19:15] VITALS: BP 95/57
[2020-11-13 01:33] VITALS: BP 100/62
[2020-11-13] MEDS: ACETAMINOPHEN 325 MG TABLET PO PRN ×3 (02:31→15:45)
[2020-11-13] MEDS: OXYcodone IR 5MG TABLET PO PRN ×3 (02:32→15:46)
[2020-11-13 05:36] LABS: BASOPHILS % (AUTO) 0 % (0-1); EOSINOPHILS % (AUTO) 0 % (1-7); LYMPHOCYTES % (AUTO) 2 % (22-44); MEAN CORPUSCULAR HEMOGLOBIN 28.9 pg (27.5-34.5); MEAN CORPUSCULAR HGB CONC 34.6 g/dL (33.2-36.2); MEAN PLATELET VOLUME 10.8 fL (7.4-10.4); MONOCYTES % (AUTO) 2 % (2-9); NEUTROPHILS % (AUTO) 95 % (42-75); RED BLOOD COUNT 4.71 x10^6/uL (4.38-5.82)
[2020-11-13] MEDS: SODIUM CHLORIDE 0.9% 1,000 ML IV SCH (05:44)
[2020-11-13 05:52] LABS: CHLORIDE 106 mmol/L (98-107)
[2020-11-13 05:58] LABS: MD SCAN
[2020-11-13 06:00] LABS: ALANINE AMINOTRANSFERASE 103 U/L (12-78); ALBUMIN 2.2 g/dL (3.4-5.0); ALKALINE PHOSPHATASE 314 U/L (45-117); ANION GAP 4 mmol/L (5-15); BILIRUBIN,TOTAL 4.8 mg/dL (0.2-1.0); CALCIUM 8.1 mg/dL (8.5-10.1); CREATININE 0.94 mg/dL (0.7-1.3); PLATELET COUNT 47 x10^3/uL (130-400); TOTAL PROTEIN 6.1 g/dL (6.4-8.2)
[2020-11-13] MEDS ORDERED: SODIUM CHLORIDE 0.9% 1,000ML IVBOLUS ONE (06:30)
[2020-11-13 07:28] VITALS: BP 102/66
[2020-11-13] MEDS: PANTOPRAZOLE 40MG TABLET PO SCH (07:59)
[2020-11-13] MEDS: INSULIN LISPRO 100 UNITS/ML, PEN SQ-INSULIN SCH ×2 (07:59→12:33)
[2020-11-13] MEDS: SODIUM CHLORIDE FLUSH 10ML SYR IVF SCH (08:28)
[2020-11-13] MEDS: INSULIN GLARGINE 100 UNITS/ML, PEN SQ-INSULIN SCH (08:29)
[2020-11-13 12:10] VITALS: BP 101/62
[2020-11-13] MEDS ORDERED: OXYC5TAB98 PO (12:58)
== END 2020-11-13 16:43 | disposition home or self-care (01) | DRG 444 ==
LOC: ED 22:36 → EDIP 23:14 → INTOOBSV 23:14 → 4NE 11-12 00:04 → OBSVTOIN 11-12 13:30 → DCLOUNGE 11-13 16:40
PROVIDERS: ADMIT Family Medicine; ATTEND Family Medicine
DX: K83.1 Obstruction of bile duct (principal); I81 Portal vein thrombosis; I85.00 Esophageal varices without bleeding; K29.70 Gastritis, unspecified, without bleeding; D69.6 Thrombocytopenia, unspecified; E10.9 Type 1 diabetes mellitus without complications; Z83.438 Family history of other disorder of lipoprotein metabolism and other lipidemia; Z82.49 Family history of ischemic heart disease and other diseases of the circulatory system; Z79.4 Long term (current) use of insulin; Z83.3 Family history of diabetes mellitus; Z79.899 Other long term (current) drug therapy; Z79.891 Long term (current) use of opiate analgesic; Z79.01 Long term (current) use of anticoagulants
CPT/HCPCS: 36415; 71045; 74177; 76700; 80053; 82962; 83605; 83690; 83735; 84100; 85025; 93005; 96374; 96375; 96376; 99285; G0378; J2405; Q9967; J1815; J1817; J2270; J3475; J7030

== ENCOUNTER 2020-11-14 11:19 | Inpatient (IN) | payer OTHER ==
[~2020-11-14] VITALS: Ht 162.6 cm; Wt 89.0 kg
[~2020-11-14 11:19] MED LIST changes: +ONDA4TAB7 PO; +OXYC5TAB98 PO
--- NOTE | 2020-11-14 11:40 | NUR ---
BIB [facility] FROM HOME. PT GF STATES PT LETHARGIC. DC FROM [facility] YESTERDAY. OXYGEN 85% RA, NO HOME O2. TRANSPORTATION AGENT [facility]: 4L OXYGEN VIA NC, PIV 20G R HAND, 700ML NS, FSBG 122. PT CONNECTED TO MONITORING. CALL LIGHT IN REACH. EKG COMPLETE. PROVIDER AT BEDSIDE. PT A&OX4. PT STATES TO ASK HIS GF ABOUT HAPPENINGS THIS AM. GF NOT AT BEDSIDE.
[2020-11-14] MEDS ORDERED: HYDROmorphone 1 MG/ML, 1ML INJ ONE (11:45)
[2020-11-14] MEDS ORDERED: METRONIDAZOLE PMX 500MG/100ML 100 ML ONE (11:45)
[2020-11-14] MEDS ORDERED: ONDANSETRON 2MG/ML, 2ML ONE (11:45)
[2020-11-14] MEDS ORDERED: ACETAMINOPHEN 500 MG TABLET ONE (11:45)
[2020-11-14] MEDS ORDERED: SODIUM CHLORIDE FLUSH 10ML SYR IVF ONE (12:00)
[2020-11-14] MEDS ORDERED: METRONIDAZOLE PMX 500MG/100ML 100 ML IV ONE (12:00)
[2020-11-14] MEDS ORDERED: LACTATED RINGERS 1,000 ML IVBOLUS ONE ×2 (12:00→14:00)
[2020-11-14] MEDS ORDERED: CEFOTETAN PMX 1GM/50ML 50 ML IVPB ONE (12:00)
[2020-11-14] MEDS ORDERED: HYDROmorphone 2 MG/ML, 1ML IVPush PRN ×2 (12:00→16:30)
[2020-11-14] MEDS ORDERED: ACETAMINOPHEN 500 MG TABLET PO ONE (12:00)
--- NOTE | 2020-11-14 12:00 | NUR ---
IV ABX STARTED PER DEC. 2 SETS BLOOD CX COLLECTED PRIOR TO ADMIN.
[2020-11-14 12:12] LABS: BASOPHILS % (AUTO) 0 % (0-1); EOSINOPHILS % (AUTO) 1 % (1-7); LYMPHOCYTES % (AUTO) 2 % (22-44); MEAN CORPUSCULAR HEMOGLOBIN 28.4 pg (27.5-34.5); MEAN CORPUSCULAR HGB CONC 33.8 g/dL (33.2-36.2); MEAN PLATELET VOLUME 10.3 fL (7.4-10.4); MONOCYTES % (AUTO) 1 % (2-9); NEUTROPHILS % (AUTO) 97 % (42-75); RED BLOOD COUNT 4.86 x10^6/uL (4.38-5.82); RED CELL DISTRIBUTION WIDTH 16.1 % (9.4-14.8)
--- NOTE | 2020-11-14 12:16 | NUR ---
PER PHARMACY, OK TO RUN FLAGYL AND LACTATED RINGERS TOGETHER.
--- NOTE | 2020-11-14 12:17 | NUR ---
PT STATES PAIN IS BETTER AFTER PAIN MEDS.
[2020-11-14 12:28] LABS: ALBUMIN 1.9 g/dL (3.4-5.0); ANION GAP 8 mmol/L (5-15); CALCIUM 7.9 mg/dL (8.5-10.1); CHLORIDE 110 mmol/L (98-107)
[2020-11-14 12:32] LABS: ALANINE AMINOTRANSFERASE 71 U/L (12-78); ALKALINE PHOSPHATASE 411 U/L (45-117); BILIRUBIN,TOTAL 5.7 mg/dL (0.2-1.0); CREATININE 0.94 mg/dL (0.7-1.3); TOTAL PROTEIN 5.9 g/dL (6.4-8.2)
[2020-11-14] MEDS ORDERED: NS + 40MEQ KCL 1,000 ML IV ONE ×2 (12:37→12:48)
[2020-11-14 12:44] LABS: MD SCAN; PLATELET COUNT 48 x10^3/uL (130-400)
--- NOTE | 2020-11-14 12:44 | NUR ---
PT AT CT. NOTIFIED ABOUT LOW BP. CENTRAL LINE TO BE PLACED AFTER PT RETURN.
--- NOTE | 2020-11-14 13:03 | NUR ---
RECEIVED REPORT FROM NANO GARRETT. PT RESTING ON [place]HUNTA. BP REMAINS IN THE 80'S SBP.
--- NOTE | 2020-11-14 13:21 | NUR ---
ERP AWARE OF PT BP. CENTRAL LINE TO BE PLACED.
[2020-11-14] MEDS ORDERED: OMNIPAQUE 350 MG/ML, 100ML BOTTLE ONE (13:35)
--- NOTE | 2020-11-14 13:44 | NUR ---
CENTRAL LINE PLACED R NECK BY ERP DR. BARTHOLOMEW. PT LALI WELL.
--- NOTE | 2020-11-14 13:56 | NUR ---
YELLOW SLIP SENT TO PHARMACY FOR MEDS PER DEC.
[2020-11-14] MEDS ORDERED: NOREPINEPHRINE 8 MG in SODIUM CHLORIDE 0.9% 242 ML IV PRN ×2 (14:00→16:30)
[2020-11-14] MEDS ORDERED: SODIUM CHLORIDE 0.9%, 500ML IVBOLUS ONE (14:00)
[2020-11-14] MEDS ORDERED: POTASSIUM CHLORIDE 20 MEQ TAB.ER.PRT PO ONE (14:30)
--- NOTE | 2020-11-14 14:35 | NUR ---
UA COLLECTED, LABELED AND SENT TO LAB.
--- NOTE | 2020-11-14 14:37 | NUR ---
PT BP NOTED TO INCREASE TO SBP 100'S AFTER START OF LEVOPHED MEDICATION AT LOWEST DOSE. PT RESTING ON KILEYRROBY. SCOT.
--- NOTE | 2020-11-14 14:48 | NUR ---
3rd page placed to GI at 14:45. 1st page was at 13:56 and 2nd page was at 14:22. Asked answering service if they could page this MT through to doctors cell phone as this is the 3rd page and answering service states they do not have the ability to transfer this MT through to doctors cell phone, but will continue to page her.
[2020-11-14] MEDS ORDERED: POTASSIUM CHLORIDE 20 MEQ TAB.ER.PRT ONE (15:03)
[2020-11-14 15:09] LABS: MICROSCOPIC INDICATED
--- NOTE | 2020-11-14 15:10 | NUR ---
UNR AT BEDSIDE FOR EVAL.
--- NOTE | 2020-11-14 15:19 | NUR ---
PT RESTING ON GURNEY. NADN. SHIN.
[2020-11-14] MEDS ORDERED: CIPROFLOXACIN/PMX 400MG/200ML 200 ML ONE (15:23)
[2020-11-14] MEDS ORDERED: METRONIDAZOLE PMX 500MG/100ML 100 ML IV SCH ×2 (15:30→20:00)
[2020-11-14] MEDS ORDERED: CIPROFLOXACIN/PMX 400MG/200ML 200 ML IV SCH (15:30)
--- NOTE | 2020-11-14 15:38 | NUR ---
REPORT GIVEN TO DIGNA MCMANUS RN. ALL QUESTIONS ANSWERED. PT TO BE TRANSPORTED BY THIS RN, CANTEEN ATTENDANT, AND [place] MONITOR.
[2020-11-14] MEDS ORDERED: hydrALAzine 20 MG/ML, 1ML IVPush PRN (16:30)
[2020-11-14] MEDS ORDERED: METOCLOPRAMIDE 5 MG/ML, 2ML IVPush PRN (16:30)
[2020-11-14] MEDS ORDERED: GUAIFENESIN/DM 200-20MG, 10ML UDC PO PRN (16:30)
[2020-11-14] MEDS: INSULIN LISPRO 100 UNITS/ML, PEN SQ-INSULIN SCH ×2 (16:30→20:57)
[2020-11-14] MEDS ORDERED: DOCUSATE 100 MG CAPSULE PO PRN (16:30)
[2020-11-14] MEDS ORDERED: LABETALOL 5MG/ML, 20ML IVPush PRN (16:30)
[2020-11-14] MEDS ORDERED: ONDANSETRON 2MG/ML, 2ML IVPush PRN (16:30)
[2020-11-14] MEDS ORDERED: ONDANSETRON ODT 4 MG PO PRN (16:30)
[2020-11-14] MEDS ORDERED: GLUCAGON 1 MG IM PRN (17:00)
[2020-11-14] MEDS ORDERED: DEXTROSE 50%, 50ML SYRINGE IVPush PRN (17:00)
[2020-11-14] MEDS ORDERED: DEXTROSE 4 GM TAB.CHEW PO PRN (17:00)
[2020-11-14] MEDS: NS + 20MEQ KCL 1,000 ML IV SCH (17:20)
[2020-11-14] MEDS: PIPERACILLIN/TAZO/PMX 3.375GM 50 ML IV SCH ×2 (18:01→22:51)
[2020-11-14] MEDS: ESOMEPRAZOLE 40 MG IV IVPush SCH (18:01)
[2020-11-14] MEDS: SODIUM CHLORIDE FLUSH 10ML SYR IVF SCH (20:56)
[2020-11-14] MEDS: morphine SULFATE 10 MG/ML, 1ML IVPush PRN (20:58)
[2020-11-14] MEDS: LACTULOSE 10 GM/15 ML UDC PO SCH (22:51)
[2020-11-15] MEDS: NS + 20MEQ KCL 1,000 ML IV SCH ×3 (02:05→20:00)
[2020-11-15] MEDS: PIPERACILLIN/TAZO/PMX 3.375GM 50 ML IV SCH ×4 (06:15→23:53)
[2020-11-15 06:34] LABS: BASOPHILS % (AUTO) 0 % (0-1); EOSINOPHILS % (AUTO) 1 % (1-7); LYMPHOCYTES % (AUTO) 3 % (22-44); MEAN CORPUSCULAR HEMOGLOBIN 28.4 pg (27.5-34.5); MEAN CORPUSCULAR HGB CONC 34.3 g/dL (33.2-36.2); MEAN PLATELET VOLUME 10.3 fL (7.4-10.4); MONOCYTES % (AUTO) 7 % (2-9); NEUTROPHILS % (AUTO) 89 % (42-75); RED BLOOD COUNT 4.67 x10^6/uL (4.38-5.82)
[2020-11-15 06:36] LABS: ALANINE AMINOTRANSFERASE 71 U/L (12-78); ALBUMIN 1.8 g/dL (3.4-5.0); ANION GAP 6 mmol/L (5-15); CHLORIDE 116 mmol/L (98-107); CHOLESTEROL, TOTAL 150 mg/dL (140-239); CREATININE 0.73 mg/dL (0.7-1.3); INTERNATIONAL NORMALIZED RATIO 1.8 (0.93-1.1)
[2020-11-15 06:38] LABS: ALKALINE PHOSPHATASE 254 U/L (45-117); BILIRUBIN,TOTAL 5.2 mg/dL (0.2-1.0); HDL CHOL % 7 % (26-37); HDL CHOLESTEROL (DIRECT) 10 mg/dL (40-60); TOTAL PROTEIN 5.9 g/dL (6.4-8.2)
[2020-11-15 06:42] LABS: LDL CHOLESTEROL,CALCULATED 85 mg/dL (54-169); LDL/HDL RATIO 8.5 (0.5-3.0); TRIGLYCERIDES 275 mg/dL (50-200); VLDL CHOLESTEROL 55 mg/dL (0-25)
[2020-11-15] MEDS: INSULIN LISPRO 100 UNITS/ML, PEN SQ-INSULIN SCH ×4 (06:49→21:43)
[2020-11-15] MEDS ORDERED: ESOMEPRAZOLE 40 MG IV IVPush SCH (07:30)
[2020-11-15 07:49] LABS: MD SCAN; PLATELET COUNT 41 x10^3/uL (130-400)
[2020-11-15] MEDS ORDERED: MAGNESIUM SULFATE PMX 2GM/50ML 50 ML IV ONE (08:30)
[2020-11-15] MEDS: ESOMEPRAZOLE 40 MG IV IVPush SCH (10:48)
[2020-11-15] MEDS: morphine SULFATE 10 MG/ML, 1ML IVPush PRN ×2 (10:50→13:34)
[2020-11-15] MEDS: LACTULOSE 10 GM/15 ML UDC PO SCH ×2 (10:50→20:16)
[2020-11-15] MEDS: SODIUM CHLORIDE FLUSH 10ML SYR IVF SCH ×2 (10:51→20:15)
[2020-11-15] MEDS ORDERED: VANCOMYCIN PER PHARMACY MC PRN (12:00)
[2020-11-15] MEDS ORDERED: VANCOMYCIN 2,100 MG in SODIUM CHLORIDE 0.9% 500 ML IV ONE (12:30)
[2020-11-16] MEDS: VANCOMYCIN 1,800 MG in SODIUM CHLORIDE 0.9% 250 ML IV SCH ×2 (02:13→12:37)
[2020-11-16 03:28] VITALS: BP 130/81
[2020-11-16] MEDS: NS + 20MEQ KCL 1,000 ML IV SCH ×3 (03:57→20:52)
[2020-11-16 04:42] LABS: ALANINE AMINOTRANSFERASE 82 U/L (12-78); ALBUMIN 1.7 g/dL (3.4-5.0); ANION GAP 6 mmol/L (5-15); CALCIUM 7.6 mg/dL (8.5-10.1); CHLORIDE 114 mmol/L (98-107); CREATININE 0.75 mg/dL (0.7-1.3)
[2020-11-16 04:44] LABS: ALKALINE PHOSPHATASE 319 U/L (45-117); BILIRUBIN,TOTAL 4.5 mg/dL (0.2-1.0); TOTAL PROTEIN 5.6 g/dL (6.4-8.2)
[2020-11-16] MEDS: PIPERACILLIN/TAZO/PMX 3.375GM 50 ML IV SCH ×4 (05:35→23:34)
[2020-11-16 06:14] LABS: BASOPHILS % (AUTO) 0 % (0-1); EOSINOPHILS % (AUTO) 0 % (1-7); LYMPHOCYTES % (AUTO) 4 % (22-44); MEAN CORPUSCULAR HEMOGLOBIN 28.2 pg (27.5-34.5); MEAN CORPUSCULAR HGB CONC 34.2 g/dL (33.2-36.2); MONOCYTES % (AUTO) 7 % (2-9); NEUTROPHILS % (AUTO) 88 % (42-75); RED BLOOD COUNT 4.75 x10^6/uL (4.38-5.82); RED CELL DISTRIBUTION WIDTH 16.1 % (9.4-14.8)
[2020-11-16 06:17] LABS: PLATELET COUNT 41 x10^3/uL (130-400)
[2020-11-16 06:32] VITALS: BP 131/82
[2020-11-16 07:14] LABS: MD SCAN
[2020-11-16] MEDS: OXYcodone IR 5MG TABLET PO PRN (07:56)
[2020-11-16] MEDS: LACTULOSE 10 GM/15 ML UDC PO SCH ×2 (08:45→20:41)
[2020-11-16] MEDS: ESOMEPRAZOLE 40 MG IV IVPush SCH (08:45)
[2020-11-16] MEDS: SODIUM CHLORIDE FLUSH 10ML SYR IVF SCH ×2 (08:45→20:42)
[2020-11-16] MEDS: INSULIN LISPRO 100 UNITS/ML, PEN SQ-INSULIN SCH ×4 (08:59→20:43)
[2020-11-16] MEDS: morphine SULFATE 10 MG/ML, 1ML IVPush PRN (11:24)
[2020-11-16 12:04] VITALS: BP 132/77
[2020-11-17] MEDS: VANCOMYCIN 1,800 MG in SODIUM CHLORIDE 0.9% 250 ML IV SCH ×2 (01:10→12:54)
[2020-11-17] MEDS: morphine SULFATE 10 MG/ML, 1ML IVPush PRN ×3 (02:45→19:59)
[2020-11-17] MEDS: NS + 20MEQ KCL 1,000 ML IV SCH ×2 (04:23→12:54)
[2020-11-17] MEDS: PIPERACILLIN/TAZO/PMX 3.375GM 50 ML IV SCH ×4 (05:20→23:20)
[2020-11-17 06:30] LABS: MEAN CORPUSCULAR HEMOGLOBIN 28.2 pg (27.5-34.5); MEAN CORPUSCULAR HGB CONC 34.8 g/dL (33.2-36.2); PLATELET COUNT 55 x10^3/uL (130-400); RED BLOOD COUNT 4.92 x10^6/uL (4.38-5.82)
[2020-11-17 06:38] LABS: INTERNATIONAL NORMALIZED RATIO 2.96 (0.93-1.1)
[2020-11-17 06:41] VITALS: BP 157/88
[2020-11-17 06:42] LABS: CHLORIDE 111 mmol/L (98-107)
[2020-11-17 06:48] LABS: ALANINE AMINOTRANSFERASE 123 U/L (12-78); ALBUMIN 1.6 g/dL (3.4-5.0); ALKALINE PHOSPHATASE 426 U/L (45-117); ANION GAP 8 mmol/L (5-15); BILIRUBIN,TOTAL 3.9 mg/dL (0.2-1.0); CALCIUM 7.6 mg/dL (8.5-10.1); CREATININE 0.69 mg/dL (0.7-1.3); TOTAL PROTEIN 5.8 g/dL (6.4-8.2)
[2020-11-17 06:56] LABS: MD YES
[2020-11-17 06:59] LABS: EOS#(MANUAL) 0.18 x10^3/uL (0.0-0.4); EOS% (MANUAL) 3 % (1-7); LYMPH#(MANUAL) 0.49 x10^3/uL (1-3.4); LYMPHS% (MANUAL) 8 % (22-44); METAMYELOCYTES# (MANUAL) 0.12 x10^3/uL (0-0); METAMYELOCYTES% (MANUAL) 2 % (0-1); MONOS#(MANUAL) 0.31 x10^3/uL (0.3-2.7); MONOS% (MANUAL) 5 % (2-9); MYELOCYTES# (MANUAL) 0.12 x10^3/uL (0-0); MYELOCYTES% (MANUAL) 2 % (0-0); SEG#(MANUAL) 4.88 x10^3/uL (1.8-6.8); SEGS% (MANUAL) 80 % (42-75)
[2020-11-17 07:00] LABS: <PLATELET ESTIMATE> DECREASED; <PLT MORPHOLOGY> NORMAL PLT MORPH; POLYCHROMASIA 1+
[2020-11-17] MEDS: INSULIN LISPRO 100 UNITS/ML, PEN SQ-INSULIN SCH ×4 (07:47→20:00)
[2020-11-17] MEDS: LACTULOSE 10 GM/15 ML UDC PO SCH ×2 (08:32→19:52)
[2020-11-17] MEDS: SODIUM CHLORIDE FLUSH 10ML SYR IVF SCH ×2 (08:40→20:02)
[2020-11-17] MEDS: ESOMEPRAZOLE 40 MG IV IVPush SCH (08:40)
[2020-11-17 11:50] VITALS: BP 135/83
[2020-11-17 19:50] VITALS: BP 136/83
[2020-11-18] VITALS (11 sets, daily range): BP systolic 133–153; BP diastolic 76–91
[2020-11-18] MEDS ORDERED: SODIUM CHLORIDE 0.9% 1,000 ML IV SCH
[2020-11-18] MEDS: VANCOMYCIN 1,800 MG in SODIUM CHLORIDE 0.9% 250 ML IV SCH ×2 (03:18→15:12)
[2020-11-18 04:40] LABS: MEAN CORPUSCULAR HEMOGLOBIN 28.2 pg (27.5-34.5); MEAN CORPUSCULAR HGB CONC 34.5 g/dL (33.2-36.2); MEAN PLATELET VOLUME 9.2 fL (7.4-10.4); PLATELET COUNT 57 x10^3/uL (130-400); RED BLOOD COUNT 4.83 x10^6/uL (4.38-5.82)
[2020-11-18 04:52] LABS: INTERNATIONAL NORMALIZED RATIO 3.18 (0.93-1.1); PROTHROMBIN TIME 33.3 Seconds (9.6-11.5)
[2020-11-18 04:53] LABS: ALBUMIN 1.6 g/dL (3.4-5.0); ANION GAP 7 mmol/L (5-15); CALCIUM 7.7 mg/dL (8.5-10.1); CHLORIDE 109 mmol/L (98-107)
[2020-11-18 04:58] LABS: ALANINE AMINOTRANSFERASE 117 U/L (12-78); ALKALINE PHOSPHATASE 484 U/L (45-117); BILIRUBIN,TOTAL 3.3 mg/dL (0.2-1.0); CREATININE 0.67 mg/dL (0.7-1.3); TOTAL PROTEIN 6.2 g/dL (6.4-8.2)
[2020-11-18 05:43] LABS: MD YES
[2020-11-18 05:44] LABS: BAND#(MANUAL) 0.06 x10^3/uL; BANDS%(MANUAL) 1 % (0-7); LYMPH#(MANUAL) 0.56 x10^3/uL (1-3.4); LYMPHS% (MANUAL) 10 % (22-44); METAMYELOCYTES# (MANUAL) 0.06 x10^3/uL (0-0); METAMYELOCYTES% (MANUAL) 1 % (0-1); MYELOCYTES# (MANUAL) 0.06 x10^3/uL (0-0); MYELOCYTES% (MANUAL) 1 % (0-0)
[2020-11-18 05:45] LABS: <PLATELET ESTIMATE> DECREASED; <PLT MORPHOLOGY> NORMAL PLT MORPH; <RBC MORPHOLOGY> NORMAL; EOS#(MANUAL) 0.28 x10^3/uL (0.0-0.4); EOS% (MANUAL) 5 % (1-7); MONOS#(MANUAL) 0.45 x10^3/uL (0.3-2.7); MONOS% (MANUAL) 8 % (2-9); SEG#(MANUAL) 4.14 x10^3/uL (1.8-6.8); SEGS% (MANUAL) 74 % (42-75)
[2020-11-18] MEDS: PIPERACILLIN/TAZO/PMX 3.375GM 50 ML IV SCH ×4 (05:49→22:57)
[2020-11-18] MEDS ORDERED: PHYTONADIONE 5 MG TABLET PO ONE (08:00)
[2020-11-18] MEDS: INSULIN LISPRO 100 UNITS/ML, PEN SQ-INSULIN SCH ×4 (08:03→22:10)
[2020-11-18] MEDS ORDERED: PHYTONADIONE 5 MG TABLET ONE ×2 (09:02→09:30)
[2020-11-18 09:05] LABS: CHOL/HDL RATIO 21.4; LDL/HDL RATIO 15.2 (0.5-3.0)
[2020-11-18] MEDS: SODIUM CHLORIDE FLUSH 10ML SYR IVF SCH ×2 (09:24→22:09)
[2020-11-18] MEDS: LACTULOSE 10 GM/15 ML UDC PO SCH ×2 (09:24→19:06)
[2020-11-18] MEDS: ESOMEPRAZOLE 40 MG IV IVPush SCH (09:26)
[2020-11-18] MEDS: OXYcodone IR 5MG TABLET PO PRN ×2 (11:25→18:01)
[2020-11-18 12:35] LABS: INTERNATIONAL NORMALIZED RATIO 2.3 (0.93-1.1); PROTHROMBIN TIME 24.2 Seconds (9.6-11.5)
[2020-11-18 18:09] LABS: INTERNATIONAL NORMALIZED RATIO 1.62 (0.93-1.1); PROTHROMBIN TIME 17.2 Seconds (9.6-11.5)
[2020-11-19 01:15] VITALS: BP 133/80
[2020-11-19] MEDS: VANCOMYCIN 1,800 MG in SODIUM CHLORIDE 0.9% 250 ML IV SCH ×3 (03:15→16:30)
[2020-11-19 05:05] LABS: BASOPHILS % (AUTO) 0 % (0-1); EOSINOPHILS % (AUTO) 3 % (1-7); LYMPHOCYTES % (AUTO) 9 % (22-44); MEAN CORPUSCULAR HEMOGLOBIN 27.9 pg (27.5-34.5); MEAN CORPUSCULAR HGB CONC 34.4 g/dL (33.2-36.2); MEAN PLATELET VOLUME 10.2 fL (7.4-10.4); MONOCYTES % (AUTO) 9 % (2-9); NEUTROPHILS % (AUTO) 80 % (42-75); PLATELET COUNT 74 x10^3/uL (130-400); RED BLOOD COUNT 4.69 x10^6/uL (4.38-5.82); RED CELL DISTRIBUTION WIDTH 16.1 % (9.4-14.8)
[2020-11-19 05:10] LABS: INTERNATIONAL NORMALIZED RATIO 1.33 (0.93-1.1); PROTHROMBIN TIME 14.1 Seconds (9.6-11.5)
[2020-11-19 05:14] LABS: ALBUMIN 1.9 g/dL (3.4-5.0); ANION GAP 8 mmol/L (5-15); CALCIUM 8.2 mg/dL (8.5-10.1); CHLORIDE 108 mmol/L (98-107)
[2020-11-19 05:17] LABS: ALANINE AMINOTRANSFERASE 89 U/L (12-78); ALKALINE PHOSPHATASE 526 U/L (45-117); BILIRUBIN,TOTAL 4.1 mg/dL (0.2-1.0); CREATININE 0.81 mg/dL (0.7-1.3); TOTAL PROTEIN 6.8 g/dL (6.4-8.2)
[2020-11-19 05:39] LABS: MD SCAN
[2020-11-19] MEDS: PIPERACILLIN/TAZO/PMX 3.375GM 50 ML IV SCH ×3 (05:55→20:32)
[2020-11-19 06:56] VITALS: BP 144/88
[2020-11-19] MEDS: INSULIN LISPRO 100 UNITS/ML, PEN SQ-INSULIN SCH ×4 (07:00→20:09)
[2020-11-19] MEDS ORDERED: POTASSIUM PHOSPHATE 44 MEQ in SODIUM CHLORIDE 0.9% 500 ML IV ONE (07:00)
[2020-11-19] MEDS ORDERED: POTASSIUM CHLORIDE 20 MEQ in SODIUM CHLORIDE 0.9% 250 ML IV ONE (07:00)
[2020-11-19] MEDS: ESOMEPRAZOLE 40 MG IV IVPush SCH (07:43)
[2020-11-19] MEDS: SODIUM CHLORIDE FLUSH 10ML SYR IVF SCH ×2 (07:43→20:10)
[2020-11-19] MEDS: LACTULOSE 10 GM/15 ML UDC PO SCH ×2 (07:54→20:01)
[2020-11-19] MEDS ORDERED: FUROSEMIDE 20 MG/2 ML IV ONE (09:00)
[2020-11-19 12:21] VITALS: BP 134/81
[2020-11-19 19:59] VITALS: BP 132/78
[2020-11-20 00:47] VITALS: BP 128/77
[2020-11-20] MEDS: PIPERACILLIN/TAZO/PMX 3.375GM 50 ML IV SCH ×4 (01:50→20:15)
[2020-11-20] MEDS: VANCOMYCIN 1,800 MG in SODIUM CHLORIDE 0.9% 250 ML IV SCH ×2 (04:46→16:54)
[2020-11-20 06:49] VITALS: BP 147/88
[2020-11-20] MEDS: INSULIN LISPRO 100 UNITS/ML, PEN SQ-INSULIN SCH ×4 (07:00→20:18)
[2020-11-20] MEDS ORDERED: POTASSIUM CHLORIDE 20 MEQ TAB.ER.PRT PO ONE (07:00)
[2020-11-20] MEDS: SPIRONOLACTONE 50 MG TABLET PO SCH (07:44)
[2020-11-20] MEDS: ESOMEPRAZOLE 40 MG IV IVPush SCH (07:45)
[2020-11-20 07:48] LABS: ALBUMIN 1.8 g/dL (3.4-5.0); ANION GAP 9 mmol/L (5-15); CALCIUM 7.9 mg/dL (8.5-10.1); CHLORIDE 105 mmol/L (98-107)
[2020-11-20 07:51] LABS: ALANINE AMINOTRANSFERASE 73 U/L (12-78); ALKALINE PHOSPHATASE 587 U/L (45-117); BASOPHILS % (AUTO) 0 % (0-1); BILIRUBIN,TOTAL 4.2 mg/dL (0.2-1.0); CREATININE 0.76 mg/dL (0.7-1.3); EOSINOPHILS % (AUTO) 2 % (1-7); LYMPHOCYTES % (AUTO) 7 % (22-44); MEAN CORPUSCULAR HEMOGLOBIN 27.8 pg (27.5-34.5); MEAN CORPUSCULAR HGB CONC 34.2 g/dL (33.2-36.2); MEAN PLATELET VOLUME 8.5 fL (7.4-10.4); MONOCYTES % (AUTO) 6 % (2-9); NEUTROPHILS % (AUTO) 85 % (42-75); PLATELET COUNT 82 x10^3/uL (130-400); RED BLOOD COUNT 4.67 x10^6/uL (4.38-5.82); RED CELL DISTRIBUTION WIDTH 15.8 % (9.4-14.8)
[2020-11-20] MEDS: SODIUM CHLORIDE FLUSH 10ML SYR IVF SCH ×2 (07:53→20:19)
[2020-11-20] MEDS: LACTULOSE 10 GM/15 ML UDC PO SCH ×2 (07:53→20:19)
[2020-11-20 08:54] LABS: MD SCAN
[2020-11-20] MEDS ORDERED: FENTANYL PF 100 MCG/2ML ONE ×2 (12:53→13:41)
[2020-11-20] MEDS ORDERED: PROMETHAZINE 25 MG/ML, 1ML IVPush PRN (14:00)
[2020-11-20] MEDS ORDERED: ONDANSETRON 2MG/ML, 2ML IVPush PRN (14:00)
[2020-11-20] MEDS ORDERED: OXYcodone 5 MG/5 ML ORAL.SOL UDC PO PRN (14:00)
[2020-11-20] MEDS ORDERED: FENTANYL PF 100 MCG/2ML IV PRN (14:00)
[2020-11-20] MEDS ORDERED: PROMETHAZINE 25 MG SUPP PR PRN (14:00)
[2020-11-20] MEDS ORDERED: OMNIPAQUE 350 MG/ML, 50 ML BOTTLE ONE (14:19)
[2020-11-20] MEDS ORDERED: INDOMETHACIN 50 MG SUPP.RECT ONE (14:33)
[2020-11-20] MEDS ORDERED: INDOMETHACIN 50 MG SUPP.RECT PR ONE (15:00)
[2020-11-20 15:41] VITALS: BP 139/85
[2020-11-20] MEDS ORDERED: PROPOFOL 10 MG/ML, 20ML ONE (16:06)
[2020-11-20] MEDS ORDERED: SUCCINYLCHOLINE 20 MG/ML, 10ML ONE (16:06)
[2020-11-20] MEDS ORDERED: PHENYLEPHRINE 10 MG/ML ONE (16:06)
[2020-11-20] MEDS ORDERED: ROCURONIUM 10MG/ML,5ML ONE (16:06)
[2020-11-20 16:24] LABS: MEAN CORPUSCULAR HGB CONC 34.2 g/dL (33.2-36.2); PLATELET COUNT 90 x10^3/uL (130-400); RED BLOOD COUNT 4.74 x10^6/uL (4.38-5.82); RED CELL DISTRIBUTION WIDTH 15.8 % (9.4-14.8)
[2020-11-20 16:26] LABS: ANION GAP 12 mmol/L (5-15); CALCIUM 8.1 mg/dL (8.5-10.1); CHLORIDE 102 mmol/L (98-107)
[2020-11-20 16:31] LABS: ALANINE AMINOTRANSFERASE 71 U/L (12-78); ALKALINE PHOSPHATASE 615 U/L (45-117); BILIRUBIN,TOTAL 4.3 mg/dL (0.2-1.0); CREATININE 0.73 mg/dL (0.7-1.3); TOTAL PROTEIN 7.5 g/dL (6.4-8.2)
[2020-11-20 16:50] LABS: MD YES
[2020-11-20 16:53] LABS: ANISOCYTOSIS 1+; BAND#(MANUAL) 0.47 x10^3/uL; BANDS%(MANUAL) 7 % (0-7); EOS#(MANUAL) 0.13 x10^3/uL (0.0-0.4); EOS% (MANUAL) 2 % (1-7); LYMPH#(MANUAL) 0.47 x10^3/uL (1-3.4); LYMPHS% (MANUAL) 7 % (22-44); MONOS% (MANUAL) 3 % (2-9); MYELOCYTES# (MANUAL) 0.07 x10^3/uL (0-0); MYELOCYTES% (MANUAL) 1 % (0-0); POLYCHROMASIA 1+; SEG#(MANUAL) 5.36 x10^3/uL (1.8-6.8); SEGS% (MANUAL) 80 % (42-75)
[2020-11-20 16:54] LABS: <PLATELET ESTIMATE> DECREASED; <PLT MORPHOLOGY> NORMAL PLT MORPH; TOXIC GRAN 1+
[2020-11-20 18:36] VITALS: BP 143/84
[2020-11-21] MEDS: PIPERACILLIN/TAZO/PMX 3.375GM 50 ML IV SCH ×3 (01:50→14:56)
[2020-11-21 01:52] VITALS: BP 142/85
[2020-11-21] MEDS: VANCOMYCIN 1,800 MG in SODIUM CHLORIDE 0.9% 250 ML IV SCH (04:30)
[2020-11-21 04:31] LABS: MEAN CORPUSCULAR HEMOGLOBIN 28.1 pg (27.5-34.5); MEAN CORPUSCULAR HGB CONC 34.7 g/dL (33.2-36.2); MEAN PLATELET VOLUME 9.5 fL (7.4-10.4); PLATELET COUNT 72 x10^3/uL (130-400); RED BLOOD COUNT 4.51 x10^6/uL (4.38-5.82); RED CELL DISTRIBUTION WIDTH 15.6 % (9.4-14.8)
[2020-11-21 04:43] LABS: ALBUMIN 1.9 g/dL (3.4-5.0); ANION GAP 8 mmol/L (5-15); CALCIUM 7.9 mg/dL (8.5-10.1); CHLORIDE 106 mmol/L (98-107)
[2020-11-21 04:46] LABS: ALANINE AMINOTRANSFERASE 61 U/L (12-78); ALKALINE PHOSPHATASE 527 U/L (45-117); BILIRUBIN,TOTAL 3.4 mg/dL (0.2-1.0); CREATININE 0.69 mg/dL (0.7-1.3); TOTAL PROTEIN 6.9 g/dL (6.4-8.2)
[2020-11-21 05:27] LABS: MD YES
[2020-11-21 05:33] LABS: BAND#(MANUAL) 0.13 x10^3/uL; BANDS%(MANUAL) 3 % (0-7); BASOS#(MANUAL) 0.04 x10^3/uL (0-0.1); BASOS% (MANUAL) 1 % (0-1); LYMPH#(MANUAL) 0.34 x10^3/uL (1-3.4); LYMPHS% (MANUAL) 8 % (22-44); METAMYELOCYTES# (MANUAL) 0.09 x10^3/uL (0-0); METAMYELOCYTES% (MANUAL) 2 % (0-1); MONOS#(MANUAL) 0.17 x10^3/uL (0.3-2.7); MONOS% (MANUAL) 4 % (2-9); MYELOCYTES# (MANUAL) 0.09 x10^3/uL (0-0); MYELOCYTES% (MANUAL) 2 % (0-0); REACTIVE LYMPHS # (MANUAL) 0.17 x10^3/uL (0-0); REACTIVE LYMPHS % (MANUAL) 4 % (0-0); SEG#(MANUAL) 3.27 x10^3/uL (1.8-6.8); SEGS% (MANUAL) 76 % (42-75)
[2020-11-21 05:34] LABS: ANISOCYTOSIS 1+; OVALOCYTES 1+; POLYCHROMASIA 1+
[2020-11-21 05:35] LABS: TOXIC GRAN 1+
[2020-11-21 05:36] LABS: <PLATELET ESTIMATE> DECREASED; LARGE PLATELETS 1+
[2020-11-21] MEDS: LACTULOSE 10 GM/15 ML UDC PO SCH (07:24)
[2020-11-21] MEDS: ESOMEPRAZOLE 40 MG IV IVPush SCH (07:52)
[2020-11-21] MEDS: SPIRONOLACTONE 50 MG TABLET PO SCH (07:52)
[2020-11-21] MEDS: SODIUM CHLORIDE FLUSH 10ML SYR IVF SCH (07:53)
[2020-11-21 08:00] VITALS: BP 146/77
[2020-11-21] MEDS: INSULIN LISPRO 100 UNITS/ML, PEN SQ-INSULIN SCH ×2 (08:07→11:13)
[2020-11-21] MEDS ORDERED: SPIR50TA PO (10:03)
[2020-11-21] MEDS ORDERED: SULF1TAB24 PO (10:03)
[2020-11-21] MEDS ORDERED: AMOX1TAB64 PO (10:03)
[2020-11-21] MEDS ORDERED: FURO20TA3 PO (10:03)
[2020-11-21 13:57] VITALS: BP 147/86
== END 2020-11-21 16:00 | disposition home or self-care (01) | DRG 871 ==
LOC: ED 14:47 → CCU 15:58 → ICU 17:30 → 4WST 11-16 02:40
PROVIDERS: ADMIT Hospitalist; ATTEND Hospitalist
PROC: 02H633Z Insertion of Infusion Device into Right Atrium, Percutaneous Approach (ICD-10-PCS; principal; 2020-11-14)
PROC: 30233K1 Transfusion of Nonautologous Frozen Plasma into Peripheral Vein, Percutaneous Approach (ICD-10-PCS; 2020-11-18)
PROC: 0F798DZ Dilation of Common Bile Duct with Intraluminal Device, Via Natural or Artificial Opening Endoscopic (ICD-10-PCS; 2020-11-20)
PROC: BF111ZZ Fluoroscopy of Biliary and Pancreatic Ducts using Low Osmolar Contrast (ICD-10-PCS; 2020-11-20)
PROC: 0FPB8DZ Removal of Intraluminal Device from Hepatobiliary Duct, Via Natural or Artificial Opening Endoscopic (ICD-10-PCS; 2020-11-20)
DX: A41.9 Sepsis, unspecified organism (principal); R65.21 Severe sepsis with septic shock; K85.10 Biliary acute pancreatitis without necrosis or infection; I81 Portal vein thrombosis; D69.3 Immune thrombocytopenic purpura; K86.1 Other chronic pancreatitis; K83.09 Other cholangitis; K76.6 Portal hypertension; I85.00 Esophageal varices without bleeding; Z20.822 Contact with and (suspected) exposure to COVID-19; R09.02 Hypoxemia; K80.20 Calculus of gallbladder without cholecystitis without obstruction; K72.90 Hepatic failure, unspecified without coma; E88.09 Other disorders of plasma-protein metabolism, not elsewhere classified; E87.6 Hypokalemia; E83.39 Other disorders of phosphorus metabolism; I86.4 Gastric varices; E10.65 Type 1 diabetes mellitus with hyperglycemia; D72.810 Lymphocytopenia; B96.89 Other specified bacterial agents as the cause of diseases classified elsewhere; Z82.49 Family history of ischemic heart disease and other diseases of the circulatory system; Z87.442 Personal history of urinary calculi; Z79.4 Long term (current) use of insulin; Z84.89 Family history of other specified conditions
CPT/HCPCS: 36415; 71045; 74177; 74181; 74328; 76700; 80053; 80061; 80202; 81001; 82962; 83605; 83690; 83735; 84100; 84145; 85025; 85610; 87040; 87077; 87081; 87181; 87186; 93005; 96374; 96375; 99285; G0378; J0744; J1170; J2543; J2704; J3010; J3370; J3480; Q9967; C1769; C1894; C2625; J0330; J1815; J1940; J2270; J2370; J3475; J7030; J7040; J7050; J7120; P9017; U0003

== ENCOUNTER 2020-12-30 19:56 | Emergency (ER) | payer OTHER ==
[~2020-12-30] VITALS: Ht 162.6 cm; Wt 77.1 kg
[~2020-12-30 19:56] MED LIST changes: +FURO20TA3 PO; +SPIR50TA PO
[2020-12-30 19:58] VITALS: BP 156/95
[2020-12-30] MEDS ORDERED: LIDOCAINE-MPF 1%, 5ML ONE (20:49)
[2020-12-30] MEDS ORDERED: FLUORESCEIN OPHTHALMIC 1 MG STRIP LEFTEYE ONE (21:00)
[2020-12-30] MEDS ORDERED: LIDOCAINE 1%, 10ML INFIL ONE (21:00)
[2020-12-30] MEDS ORDERED: PROPARACAINE OPHTH 0.5%, 15ML LEFTEYE ONE (21:00)
[2020-12-30] MEDS ORDERED: SULFAMETH./TRIMETHOPRIM DS 800MG/160MG TABLET PO ONE (21:30)
[2020-12-30] MEDS ORDERED: CEPHALEXIN 500 MG CAPSULE PO ONE (21:30)
[2020-12-30] MEDS ORDERED: SULFAMETH./TRIMETHOPRIM DS 800MG/160MG TABLET ONE (22:06)
[2020-12-30] MEDS ORDERED: CEPHALEXIN 500 MG CAPSULE ONE (22:06)
== END 2020-12-30 22:26 | disposition home or self-care (01) ==
LOC: ED 20:26
DX: L02.215 Cutaneous abscess of perineum (principal); I10 Essential (primary) hypertension; E11.9 Type 2 diabetes mellitus without complications
CPT/HCPCS: 46050; 99284

== ENCOUNTER 2021-01-01 14:16 | Emergency (ER) | payer OTHER ==
[~2021-01-01] VITALS: Ht 162.6 cm; Wt 77.7 kg
[2021-01-01 14:22] VITALS: BP 154/94
--- NOTE | 2021-01-01 15:32 | NUR ---
SHAPER MACHINE HAND: PT TO ROOM FROM LOBBY.
[2021-01-01] MEDS ORDERED: KETOROLAC 30 MG/1 ML IM ONE (16:30)
[2021-01-01] MEDS ORDERED: KETOROLAC 30 MG/1 ML ONE (16:39)
--- NOTE | 2021-01-01 16:44 | NUR ---
BREAK RN: MEDICATED PER DEC, PT TOLATERED WELL, VERBALIZED NO NEEDS AT THIS TIME
== END 2021-01-01 17:29 | disposition home or self-care (01) ==
LOC: ED 16:56
DX: L02.215 Cutaneous abscess of perineum (principal); I10 Essential (primary) hypertension; E11.9 Type 2 diabetes mellitus without complications; Z48.00 Encounter for change or removal of nonsurgical wound dressing
CPT/HCPCS: 96372; 99283; J1885

== ENCOUNTER 2021-01-03 22:40 | Emergency (ER) | payer OTHER ==
[~2021-01-03] VITALS: Ht 162.6 cm; Wt 76.7 kg
[2021-01-03 22:45] VITALS: BP 153/91
--- NOTE | 2021-01-03 22:50 | NUR ---
PT TO ROOM, C/C OF PERIANAL ABCESS THAT NEEDS RECHECKING AFTER LANCED AND DRAINED AND PACKED ON PAST TUESDAY.
--- NOTE | 2021-01-04 00:09 | NUR ---
DIRECTOR OF FINANCE SAW PT, AND VISUALIZED WOUND. NO NEW PACKING NEEDED. PT TO BE D/C
== END 2021-01-04 00:11 | disposition home or self-care (01) ==
LOC: ED 01-04 00:03
DX: Z48.01 Encounter for change or removal of surgical wound dressing (principal); E11.9 Type 2 diabetes mellitus without complications; I10 Essential (primary) hypertension
CPT/HCPCS: 99281

== ENCOUNTER → 2021-01-28 | Outpatient (CLI) | payer OTHER ==
[~2021-01-28] MED LIST changes: +URSO300C27 PO; +[UNRECOGNIZED DRUG - OTHER] PO
[2021-01-28 10:42] LABS: ALBUMIN 3.1 g/dL (3.4-5.0); ANION GAP 7 mmol/L (5-15); CALCIUM 8.6 mg/dL (8.5-10.1); CHLORIDE 109 mmol/L (98-107)
[2021-01-28 10:45] LABS: ALANINE AMINOTRANSFERASE 98 U/L (12-78); ALKALINE PHOSPHATASE 246 U/L (45-117); CREATININE 0.85 mg/dL (0.7-1.3)
== END | disposition home or self-care (01) ==
LOC: STAR 09:29
PROVIDERS: ATTEND Internal Medicine
DX: Z01.812 Encounter for preprocedural laboratory examination (principal); K85.90 Acute pancreatitis without necrosis or infection, unspecified; K83.1 Obstruction of bile duct; K83.09 Other cholangitis; Z20.822 Contact with and (suspected) exposure to COVID-19
CPT/HCPCS: 36415; 80053; U0003

== ENCOUNTER → 2021-05-13 | Outpatient (CLI) | payer OTHER ==
[~2021-05-13] MED LIST changes: +SULF-23 PO; -SULF1TAB24 PO; -VANC1VIA3 PO; +VANC1VIA36 PO
[2021-05-13 08:17] LABS: ALBUMIN 2.7 g/dL (3.4-5.0); ANION GAP 5 mmol/L (5-15); CALCIUM 8.9 mg/dL (8.5-10.1); CHLORIDE 107 mmol/L (98-107)
[2021-05-13 08:21] LABS: ALANINE AMINOTRANSFERASE 63 U/L (12-78); ALKALINE PHOSPHATASE 173 U/L (45-117); BILIRUBIN,TOTAL 1.1 mg/dL (0.2-1.0); CREATININE 0.88 mg/dL (0.7-1.3); TOTAL PROTEIN 7.3 g/dL (6.4-8.2)
== END | disposition home or self-care (01) ==
LOC: STAR 07:10
PROVIDERS: ATTEND Internal Medicine
DX: Z01.818 Encounter for other preprocedural examination (principal); K85.90 Acute pancreatitis without necrosis or infection, unspecified; K83.1 Obstruction of bile duct; Z20.822 Contact with and (suspected) exposure to COVID-19
CPT/HCPCS: 36415; 80053; 93005; U0003; U0005

== ENCOUNTER 2021-05-19 07:52 | Day surgery (SDC) | payer OTHER ==
[~2021-05-19] VITALS: Ht 162.6 cm; Wt 81.8 kg
[2021-05-19 08:34] VITALS: BP 145/88
[2021-05-19] MEDS ORDERED: LACTATED RINGERS 1,000 ML IV SCH (09:00)
[2021-05-19] MEDS ORDERED: CHLORHEXIDINE 15 ML UDC PO ONE (09:00)
[2021-05-19] MEDS ORDERED: KETAMINE 50 MG/ML, 10ML ONE (09:15)
[2021-05-19] MEDS ORDERED: CEFAZOLIN 1,000 MG ONE (09:18)
[2021-05-19] MEDS ORDERED: DEXAMETHASONE 4 MG/ML, 1ML ONE (09:18)
[2021-05-19] MEDS ORDERED: OMNIPAQUE 350 MG/ML, 50 ML BOTTLE ONE (09:24)
[2021-05-19] MEDS ORDERED: FENTANYL PF 100 MCG/2ML IV PRN (09:30)
[2021-05-19] MEDS ORDERED: ACETAMINOPHEN 325 MG TABLET PO PRN (09:30)
[2021-05-19] MEDS ORDERED: ONDANSETRON 2MG/ML, 2ML IVPush PRN (09:30)
[2021-05-19] MEDS ORDERED: GLUCAGON 1 MG ONE (11:43)
== END 2021-05-19 12:10 | disposition home or self-care (01) ==
LOC: OUT 07:52
PROVIDERS: ATTEND Internal Medicine
DX: Z46.59 Encounter for fitting and adjustment of other gastrointestinal appliance and device (principal); K85.91 Acute pancreatitis with uninfected necrosis, unspecified; K83.1 Obstruction of bile duct; E11.9 Type 2 diabetes mellitus without complications
CPT/HCPCS: 43275; 43277; 74328; 82962; C1769; J0690; J1100; J1610; J7120; Q9967